=== PATIENT | female | born 1975 | race Caucasian/White ===

== ENCOUNTER 2017-03-24 14:42 | Inpatient (IN) | payer OTHER ==
--- NOTE | 2017-03-24 15:01 | PDOC ---
History of Present Illness - General Chief Complaint: Urinary Problem Stated Complaint: Possible UTI Time Seen by Provider: 03/24/17 14:56 - History of Present Illness Initial Comments: 03/24/17 15:44 Patient is a 42F s/p kidney transplant (2009), currently on immunosuppression, and lupus, on coumadin for history of blood clot in leg when 21 years old, here today complaining of urinary tract symptoms for the past two days. She endorses suprapubic pain and urinary incontinence. She denies subjective fever but temperature was 101.0 in triage. She denies nausea, vomiting, chest pain, shortness of breath and chills. She denies CVA tenderness. She currently does not have a primary care provider because she recently moved. Past History - Past Medical History Allergies/Adverse Reactions: Allergies Allergy/AdvReac Type Severity Reaction Status Date / Time esomeprazole magnesium AdvReac Verified 03/24/17 14:50 [From Nexium] HTN: Yes Hypercholesterolemia: Yes Other medical history: LUPUS , FIBROMYALGIA - Psycho/Social/Smoking Cessation Hx Suicidal Ideation: No Smoking History: Never smoked Information on smoking cessation initiated: No Review of Systems - Review of Systems Able to Perform ROS?: Yes Comments:: 03/24/17 15:51 GENERAL/CONSTITUTIONAL: No fever or chills. HEAD, EYES, EARS, NOSE AND THROAT: No change in vision. No ear pain or discharge. No sore throat. CARDIOVASCULAR: No chest pain or shortness of breath RESPIRATORY: No cough, wheezing, or hemoptysis. GASTROINTESTINAL: Positive for nausea. Negative for vomiting, diarrhea or constipation. GENITOURINARY: Positive for suprapubic pain, increased frequency, and incontinence MUSCULOSKELETAL: No joint or muscle swelling or pain. Positive for chronic back and hip pain, unchanged. SKIN: No rash NEUROLOGIC: Positive for headache. Negative for: loss of consciousness, or change in strength/sensation. ENDOCRINE: No increased thirst. No abnormal weight change HEMATOLOGIC/LYMPHATIC: Positive for history of blood clots in leg when 21 years old ALLERGIC/IMMUNOLOGIC: No hives or skin allergy. *Physical Exam - Vital Signs Last Vital Signs Temp Pulse Resp BP Pulse Ox 101 F H 108 H 18 114/78 99 03/24/17 14:44 03/24/17 14:44 03/24/17 14:44 03/24/17 14:44 03/24/17 14:44 - Physical Exam Comments: 03/24/17 15:54 GENERAL: Awake, alert, and fully oriented, in no acute distress HEAD: No signs of trauma, normocephalic, atraumatic EYES: PERRLA, EOMI, conjunctiva clear ENT: Auricles normal inspection, hearing grossly normal, nares patent, oropharynx clear without exudates. NECK: Normal ROM, supple, no lymphadenopathy, JVD, or masses LUNGS: No distress, speaks full sentences, clear to auscultation bilaterally HEART: Regular rhythm, tachycardic, normal S1 and S2, no murmurs, rubs or gallops, peripheral pulses normal and equal bilaterally. ABDOMEN: Soft, nontender, normoactive bowel sounds. No suprapubic tenderness. No guarding, no rebound. No masses EXTREMITIES: Normal inspection, Normal range of motion, no edema. No clubbing or cyanosis. NEUROLOGICAL: Cranial nerves II through XII grossly intact. Normal speech, normal gait, no focal sensorimotor deficits ED Treatment Course - LABORATORY CBC & Chemistry Diagram: 03/24/17 15:45 03/24/17 15:45 Medical Decision Making - Medical Decision Making 03/24/17 15:56 Patient is a 42F kidney transplant patient on immunosuppression and coumadin here today complaining dysuria and urinary incontinence. Tachycardic and febrile with likely source of infection, meets sepsis criteria. Sepsis workup initiated. Likely secondary to urinary tract infection. 03/24/17 16:17 CXR shows no infiltrate or acute cardiopulmonary process 03/24/17 18:38 UA shows WBCs, RBCs, moderate bacteria and positive leukocyte esterase. Lactate normal. Admitted for sepsis secondary to UTI to Dr Oliva. *DC/Admit/Observation/Transfer Diagnosis at time of Disposition: Sepsis Qualifiers: Sepsis type: sepsis due to unspecified organism Qualified Code(s): A41.9 - Sepsis, unspecified organism UTI (urinary tract infection) Qualifiers: Urinary tract infection type: acute cystitis Hematuria presence: with hematuria Qualified Code(s): N30.01 - Acute cystitis with hematuria - Discharge Dispostion Condition at time of disposition: Stable Admit: Yes - Transfer to Acute Care Facility Accepting Physician:: Pj - Attestations Physician Attestion: 03/24/17 17:53 I, Dr. Sergio Rodriguez, attest that this document has been prepared under my direction and personally reviewed by me in its entirety. I further attest, that it accurately reflects all work, treatment, procedures and medical decision -making performed by me.
[2017-03-24] MEDS ORDERED: SODIUM CHLORIDE 0.9% 1000 ML INFUS.BAG IV PRN (15:29)
--- NOTE | 2017-03-24 15:31 | PDOC ---
Attending Attestation - Resident Resident Name: Sergio Rodriguez - ED Attending Attestation I have performed the following: I have examined & evaluated the patient, The case was reviewed & discussed with the resident, I agree w/resident's findings & plan, Exceptions are as noted - HPI HPI: 03/24/17 15:21 42yo F hx SLE s/p renal tx 2009 p/w suprapubic, dysuria, urinary leakage. Denies F/C, but fever here to 101. Denies N/V, CP, SOB, LE edema, rashes, focal weakness, headache. Compliant with immunesupression. No current doctors as she recently moved to [facility]. Currently on coumadin for "history of clotting" - Physicial Exam PE: 03/24/17 15:24 GENERAL: Awake, alert, and fully oriented, in no acute distress HEAD: No signs of trauma EYES: PERRLA, EOMI, sclera anicteric, conjunctiva clear ENT: Auricles normal inspection, hearing grossly normal, nares patent, oropharynx clear without exudates. Moist mucosa NECK: Normal ROM, supple, no lymphadenopathy, JVD, or masses LUNGS: Breath sounds equal, clear to auscultation bilaterally. No wheezes, and no crackles HEART: tachy but regular to 102 normal S1 and S2, no murmurs, rubs or gallops ABDOMEN: Soft, nontender, normoactive bowel sounds. No guarding, no rebound. No masses. No CVAT EXTREMITIES: Normal range of motion, no edema. No clubbing or cyanosis. No cords, erythema, or tenderness NEUROLOGICAL: Normal speech, cranial nerves intact, negative pronator drift, 5/ 5 strength in all 4 extremities, normal sensation to light touch in all 4 extremities, normal cerebellar exam, normal gait, normal reflexes and tone SKIN: Warm, Dry, normal turgor, no rashes or lesions noted. - Medical Decision Making 03/24/17 15:25 42-year-old female history of renal transplant presents with suprapubic pain, dysuria, and urinary frequency. Exam remarkable for fever to 101 and tachycardia to the low 100s. Concern for UTI versus pyelonephritis. Given patient's immunocompromised status will treat as a early sepsis. -labs -ceftriaxone IV -1L IVF, will give more if patient's tachycardia doesn't resolve and her kidney function is wnl -CXR -UA/Ucx -blood cx -likely admit 03/24/17 16:47 UA concerning for UTI. Will admit patient for further management.
[2017-03-24] MEDS ORDERED: CEFTRIAXONE 1 GM in DEXTROSE 5%-WATER - 50 ML IVPB ONE (15:32)
[2017-03-24] MEDS ORDERED: ACETAMINOPHEN 325 MG TABLET (FP) PO ONE (15:58)
[2017-03-24] MEDS ORDERED: ACETAMINOPHEN 325 MG TABLET (FP) ONE ×2 (16:21→16:22)
[2017-03-24 16:45] LABS: BASOPHIL 0.4 % (0-2.0); EOSINOPHIL 0.4 % (0-4.5); MCH 28.3 pg (25.7-33.7); MCHC 32.5 g/dl (32.0-36.0); MEAN CELL VOLUME 87.2 fl (80-96); MEAN PLT VOLUME 8.4 fl (7.5-11.1); NEUTROPHILS 74.4 % (42.8-82.8); PLATELET COUNT 240 K/MM3 (134-434); RDW 14.1 % (11.6-15.6); WHITE BLOOD COUNT 8.3 K/mm3 (4.0-10.0)
[2017-03-24 16:49] LABS: URINE APPEARANCE CLEAR; URINE BILIRUBIN NEGATIVE (NEGATIVE); URINE BLOOD 3+ (NEGATIVE); URINE COLOR LT. YELLOW; URINE GLUCOSE (UA) NEGATIVE (NEGATIVE); URINE KETONE NEGATIVE (NEGATIVE); URINE NITRITE NEGATIVE (NEGATIVE); URINE UROBILINOGEN 0.2 mg/dL (0.2-1.0)
[2017-03-24 16:52] LABS: URINE LEUK ESTERASE 1+ (NEGATIVE); URINE PROTEIN 2+ (NEGATIVE)
[2017-03-24 17:01] LABS: ACTIVATED PTT 59.2 SECONDS (26.9-34.4)
[2017-03-24 17:10] LABS: ALBUMIN 3.6 g/dl (3.4-5.0); ALK PHOS 123 U/L (45-117); ANION GAP 8 (8-16); BILIRUBIN,TOTAL 0.3 mg/dL (0.2-1.0); CALCIUM 8.8 mg/dL (8.5-10.1); CO2 28 mmol/L (21-32); CPK 268 IU/L (26-192); CREATININE 1.4 mg/dL (0.55-1.02); GLUCOSE,RANDOM 100 mg/dL (74-106); SGOT/AST 37 U/L (15-37); SGPT/ALT 50 U/L (12-78); TOT PROT 7.8 g/dl (6.4-8.2)
[2017-03-24 17:12] LABS: TROPONIN I < 0.02 ng/ml (0.00-0.05)
[2017-03-24 17:15] LABS: URINE BACTERIA MODERATE /hpf (NONE SEEN); URINE RBC 945 /hpf (0-3); URINE WBC 111 /hpf (3-5)
[2017-03-24 17:21] LABS: INR 4.58 (0.82-1.09)
[2017-03-24] MEDS: ATORVASTATIN CA 20 MG TABLET (FP) PO SCH (21:55)
[2017-03-24] MEDS: DEXTROSE 5%-0.45% SALINE 1,000 ML IV SCH (21:55)
[2017-03-24] MEDS: RANITIDINE HCL 150 MG TABLET (FP) PO SCH (21:55)
[2017-03-24] MEDS: ACETAMINOPHEN 325 MG TABLET (FP) PO PRN (22:09)
[2017-03-24] MEDS ORDERED: MYCOPHENOLATE SODIUM 360 MG TABLET.DR PO SCH (22:15)
[2017-03-24] MEDS: MYCOPHENOLATE SODIUM 360 MG TABLET.DR PO SCH (22:18)
[2017-03-24] MEDS: TACROLIMUS ANHYDROUS 1 MG CAPSULE (NF) PO SCH (22:18)
[2017-03-24] MEDS: HYDROXYCHLOROQUINE SO4 200 MG TABLET (FP) PO SCH (23:11)
[2017-03-25 01:54] VITALS: BMI 37.0
[2017-03-25] MEDS: ACETAMINOPHEN 325 MG TABLET (FP) PO PRN ×2 (02:30→18:44)
[2017-03-25] MEDS ORDERED: MYCOPHENOLATE SODIUM 360 MG TABLET.DR PO SCH (07:00)
[2017-03-25] MEDS ORDERED: TACROLIMUS ANHYDROUS 1 MG CAPSULE (NF) PO SCH (07:00)
[2017-03-25 09:10] LABS: BASOPHIL 0.3 % (0-2.0); EOSINOPHIL 0.8 % (0-4.5); MCHC 32.5 g/dl (32.0-36.0); MEAN CELL VOLUME 86.1 fl (80-96); NEUTROPHILS 64.5 % (42.8-82.8); PLATELET COUNT 218 K/MM3 (134-434); RDW 14.1 % (11.6-15.6); WHITE BLOOD COUNT 6.2 K/mm3 (4.0-10.0)
[2017-03-25] MEDS ORDERED: cefTRIAXone SODIUM 1 GM VIAL ONE (09:27)
[2017-03-25] MEDS ORDERED: PT OWN MED DRAWER 7, Y5N ONE (09:27)
[2017-03-25] MEDS ORDERED: DEXTROSE 5%-WATER - 50 ML IVPB ONE (09:28)
[2017-03-25 09:29] LABS: INR 3.57 (0.82-1.09); PROTHROMBIN TIME (PATIENT) 40.3 SEC (9.98-11.88)
[2017-03-25] MEDS: RANITIDINE HCL 150 MG TABLET (FP) PO SCH ×2 (09:30→21:46)
[2017-03-25] MEDS: LACTOBACILLUS ACIDOPHILUS 1 EACH TAB (FP) PO SCH (09:30)
[2017-03-25] MEDS: MYCOPHENOLATE SODIUM 360 MG TABLET.DR PO SCH ×2 (09:30→21:46)
[2017-03-25] MEDS: TACROLIMUS ANHYDROUS 1 MG CAPSULE (NF) PO SCH ×2 (09:31→21:47)
[2017-03-25] MEDS: HYDROXYCHLOROQUINE SO4 200 MG TABLET (FP) PO SCH ×2 (09:31→21:46)
[2017-03-25 09:39] LABS: ALBUMIN 3.4 g/dl (3.4-5.0); ANION GAP 8 (8-16); BILIRUBIN,TOTAL 0.4 mg/dL (0.2-1.0); CO2 28 mmol/L (21-32); CREATININE 1.2 mg/dL (0.55-1.02); GLUCOSE,RANDOM 101 mg/dL (74-106); SGOT/AST 45 U/L (15-37); SGPT/ALT 59 U/L (12-78); TOT PROT 7.7 g/dl (6.4-8.2)
[2017-03-25 09:40] LABS: ALK PHOS 131 U/L (45-117)
[2017-03-25] MEDS ORDERED: CEFTRIAXONE 1 GM in DEXTROSE 5%-WATER - 50 ML IVPB SCH (10:00)
--- NOTE | 2017-03-25 10:25 | EKG ---
Test Reason : Blood Pressure : / mmHG Vent. Rate : 093 BPM Atrial Rate : 093 BPM P-R Int : 160 ms QRS Dur : 086 ms QT Int : 356 ms P-R-T Axes : 024 013 009 degrees QTc Int : 442 ms NORMAL SINUS RHYTHM NONSPECIFIC T WAVE ABNORMALITY ABNORMAL ECG NO PREVIOUS ECGS AVAILABLE Confirmed by JASMIN HUERTA MD ([id number]) on 03/25/2017 10:24:50 AM Referred By: Confirmed By:JASMIN HUERTA MD
--- NOTE | 2017-03-25 12:49 | CON.NEP ---
Consult Consult Specialty:: Nephrology (Carlos/Shantanu) Referred by:: Dr. 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 Pt reports history of UTI's. Pt recently moved to [place] from [place] where she was getting her medical care. No N/V/D, no chest pain , fever, chills, Abd pain. - History Source History Provided By: Patient Limitations to Obtaining History: No Limitations - Past Medical History Renal/: Yes: Renal Failure, Other (renal transplnat ) Heme/Onc: Yes: Other (DVT, Lupus Anticoagulant) Rheumatology: Yes: Lupus - Alcohol/Substance Use Hx Alcohol Use: No - Smoking History Smoking history: Never smoked Home Medications - Allergies Allergies/Adverse Reactions: Allergies Allergy/AdvReac Type Severity Reaction Status Date / Time esomeprazole magnesium AdvReac Verified 03/24/17 14:50 [From Nexium] - Home Medications Home Medications: Ambulatory Orders Atorvastatin Ca [Lipitor] 20 mg PO HS 03/24/17 Famotidine 20 mg PO BID 03/24/17 Hydroxychloroquine Sulfate [Plaquenil] 200 mg PO BID 03/24/17 Lisinopril [Qbrelis] 0.5 mg PO AM 03/24/17 Mycophenolate Sodium [Myfortic] 4 tab PO BID 03/24/17 Tacrolimus [Prograf] 1 mg PO AM 03/24/17 Tacrolimus [Prograf] 2 mg PO HS 03/24/17 Warfarin Sodium [Coumadin] 3 mg PO DAILY 03/24/17 Family Disease History - Family Disease History Family History: Unremarkable Review of Systems - Review of Systems Constitutional: reports: No Symptoms Eyes: reports: No Symptoms HENT: reports: No Symptoms Neck: reports: No Symptoms Cardiovascular: reports: No Symptoms Respiratory: reports: No Symptoms Gastrointestinal: reports: No Symptoms Genitourinary: reports: Burning, Dysuria, Frequency, Urgency Musculoskeletal: reports: No Symptoms Integumentary: reports: No Symptoms Nephrology Consult - Height Height: 5 ft 7 in - Weight Weight: 236 lb 8 oz - BMI Body Mass Index (BMI): 37.0 - Lab Results CBC,BMP: CBC, BMP 03/25/17 08:30 03/25/17 08:30 Anion Gap: Anion Gap Anion Gap 8 (8-16) 03/25/17 08:30 - Imaging Chest X-ray: Image Reviewed - Physical Examination Vital Signs: Vital Signs Temperature 98.8 F 03/25/17 10:00 Pulse Rate 75 03/25/17 10:00 Respiratory Rate 18 03/25/17 10:00 Blood Pressure 100/65 03/25/17 10:00 O2 Sat by Pulse Oximetry (%) 98 03/24/17 22:00 Constitutional: Yes: Well Nourished, No Distress, Calm Eyes: Yes: Conjunctiva Clear HENT: Yes: Atraumatic, Normocephalic Neck: Yes: Supple Cardiovascular: Yes: Regular Rate and Rhythm, S1, S2. No: JVD, Murmur Respiratory: Yes: Regular, CTA Bilaterally Gastrointestinal: Yes: Normal Bowel Sounds, Soft, Abdomen, Obese. No: Tenderness Renal/: No: Anuria, Bladder Distention, CVA Tenderness - Left, CVA Tenderness - Right, Garcia Present Extremities: No: Cold, Cool, Cyanosis Edema: No Integumentary: Yes: WNL Neurological: Yes: Alert, Oriented Problem List - Problems (1) UTI (urinary tract infection) Code(s): N39.0 - URINARY TRACT INFECTION, SITE NOT SPECIFIED Qualifiers: Urinary tract infection type: acute cystitis Hematuria presence: with hematuria Qualified Code(s): N30.01 - Acute cystitis with hematuria (2) Renal transplant recipient Code(s): Z94.0 - KIDNEY TRANSPLANT STATUS (3) CKD (chronic kidney disease) Code(s): N18.9 - CHRONIC KIDNEY DISEASE, UNSPECIFIED (4) Lupus Code(s): L93.0 - DISCOID LUPUS ERYTHEMATOSUS (5) 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 #CKD with Renal Transplant Renal function appears to be at baseline Will attempt to get records from [facility] in [place] Dr. Sánchez Continue Tacrolimus BID, Myfortic BID Trend BUN/Cr as inpatient Check Tacrolimus level this evening #Cystitis/UTI Check Transplant Kidney US to ensure there is no obstruction or evidence of pylonephritis continue Abx as per ID and titrate to oral abx as per ID #DVT/Lupus Anticoagulant continue A/C If pt can be transitioned to oral abx it is ok from over perspective to discharge and we can follow her renal function as a outpatient. Thank you Will follow Doroteo Fournier DO
--- NOTE | 2017-03-25 15:17 | HP ---
Admitting History and Physical - Admission History of Present Illness: Pt is a 42 female w/ PMH significant for SLE, s/p kidney transplant (2009), currently on immunosuppression and DVT. Pt presented to the ER w/ complaints of dysuria and increased urinary frequency. She also complains of suprapubic pain for the past 2 days. In the ER she was found to have a temp of 101. History Source: Patient, Medical Record - Past Medical History Renal/: Yes: Renal Failure, Other (renal transplnat ) Heme/Onc: Yes: Other (DVT, Lupus Anticoagulant) Rheumatology: Yes: Lupus - Past Surgical History Additional Past Surgical History: Kidney transplant - Smoking History Smoking history: Never smoked - Alcohol/Substance Use Hx Alcohol Use: No Home Medications - Allergies Allergies/Adverse Reactions: Allergies Allergy/AdvReac Type Severity Reaction Status Date / Time esomeprazole magnesium AdvReac Verified 03/24/17 14:50 [From Nexium] - Home Medications Home Medications: Ambulatory Orders Atorvastatin Ca [Lipitor] 20 mg PO HS 03/24/17 Famotidine 20 mg PO BID 03/24/17 Hydroxychloroquine Sulfate [Plaquenil] 200 mg PO BID 03/24/17 Lisinopril [Qbrelis] 0.5 mg PO AM 03/24/17 Mycophenolate Sodium [Myfortic] 4 tab PO BID 03/24/17 Tacrolimus [Prograf] 1 mg PO AM 03/24/17 Tacrolimus [Prograf] 2 mg PO HS 03/24/17 Warfarin Sodium [Coumadin] 3 mg PO DAILY 03/24/17 Family Disease History - Family Disease History Family History: Unremarkable Review of Systems - Review of Systems Constitutional: reports: Loss of Appetite, Malaise Eyes: reports: No Symptoms HENT: reports: No Symptoms Neck: reports: No Symptoms Cardiovascular: reports: No Symptoms Respiratory: reports: No Symptoms Gastrointestinal: reports: Abdominal Pain Genitourinary: reports: Dysuria, Frequency Physical Examination Vital Signs: Vital Signs Temperature 98.8 F 03/25/17 10:00 Pulse Rate 75 03/25/17 10:00 Respiratory Rate 18 03/25/17 10:00 Blood Pressure 100/65 03/25/17 10:00 O2 Sat by Pulse Oximetry (%) 98 03/24/17 22:00 Constitutional: Yes: Well Nourished Eyes: Yes: WNL HENT: Yes: WNL, Atraumatic Neck: Yes: WNL, Supple Cardiovascular: Yes: WNL, Regular Rate and Rhythm Respiratory: Yes: WNL, Regular, CTA Bilaterally Gastrointestinal: Yes: WNL, Normal Bowel Sounds, Soft, Abdomen, Obese Musculoskeletal: Yes: WNL Extremities: Yes: WNL Edema: No Neurological: Yes: WNL, Alert, Oriented ...Motor Strength: WNL Labs: CBC, BMP 03/25/17 08:30 03/25/17 08:30 Problem List - Problems (1) UTI (urinary tract infection) Assessment/Plan: Cont IV antibxs ID consult Follow cultures Cont IVF Code(s): N39.0 - URINARY TRACT INFECTION, SITE NOT SPECIFIED Qualifiers: Urinary tract infection type: acute cystitis Hematuria presence: with hematuria Qualified Code(s): N30.01 - Acute cystitis with hematuria (2) DVT (deep venous thrombosis) Assessment/Plan: Coumadin on hold due to supratherapeutic pt/inr Monitor pt/inr and restart coumadin once in therapeutic range Code(s): I82.409 - ACUTE EMBOLISM AND THOMBOS UNSP DEEP VN UNSP LOWER EXTREMITY (3) CKD (chronic kidney disease) Assessment/Plan: Monitor creatinine Cont IVF Code(s): N18.9 - CHRONIC KIDNEY DISEASE, UNSPECIFIED (4) Renal transplant recipient Assessment/Plan: Renal consult Cont immunosuppressive meds Code(s): Z94.0 - KIDNEY TRANSPLANT STATUS (5) Lupus Code(s): L93.0 - DISCOID LUPUS ERYTHEMATOSUS
--- NOTE | 2017-03-25 16:03 | CONSULT ---
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 Pt reports history of UTI's. Pt recently moved to [place] from [place] where she was getting her medical care. No N/V/D, no chest pain , fever, chills, Abd pain. according to the patient she has been getting utis more frequently last year patient was admitted in may in [place] with delfino symptoms and then it seems she was in septic shock according to her currently patient is feeling a little better patient was given ceftriaxone,but still she did spike a fever of 101 after that spike patient has been afebrile - History Source History Provided By: Patient Limitations to Obtaining History: No Limitations - Past Medical History Renal/: Yes: Renal Failure, Other (renal transplnat ) Rheumatology: Yes: Lupus - Alcohol/Substance Use Hx Alcohol Use: No - Smoking History Smoking history: Never smoked Home Medications - Allergies Allergies/Adverse Reactions: Allergies Allergy/AdvReac Type Severity Reaction Status Date / Time esomeprazole magnesium AdvReac Verified 03/24/17 14:50 [From Nexium] - Home Medications Home Medications: Ambulatory Orders Atorvastatin Ca [Lipitor] 20 mg PO HS 03/24/17 Famotidine 20 mg PO BID 03/24/17 Hydroxychloroquine Sulfate [Plaquenil] 200 mg PO BID 03/24/17 Lisinopril [Qbrelis] 0.5 mg PO AM 03/24/17 Mycophenolate Sodium [Myfortic] 4 tab PO BID 03/24/17 Tacrolimus [Prograf] 1 mg PO AM 03/24/17 Tacrolimus [Prograf] 2 mg PO HS 03/24/17 Warfarin Sodium [Coumadin] 3 mg PO DAILY 03/24/17 Review of Systems - Review of Systems Constitutional: reports: Fever Eyes: reports: No Symptoms HENT: reports: No Symptoms Neck: reports: No Symptoms Cardiovascular: reports: No Symptoms Respiratory: reports: No Symptoms Gastrointestinal: reports: No Symptoms Genitourinary: reports: Burning, Dysuria Integumentary: reports: No Symptoms Neurological: reports: No Symptoms Endocrine: reports: No Symptoms Hematology/Lymphatic: reports: No Symptoms Psychiatric: reports: No Symptoms Physical Exam Vital Signs: Vital Signs Temperature 98.2 F 03/25/17 15:51 Pulse Rate 87 03/25/17 15:51 Respiratory Rate 18 03/25/17 15:51 Blood Pressure 105/68 03/25/17 15:51 O2 Sat by Pulse Oximetry (%) 98 03/24/17 22:00 Constitutional: Yes: Well Nourished, No Distress, Calm, Obese Eyes: Yes: Conjunctiva Clear, EOM Intact Cardiovascular: Yes: Regular Rate and Rhythm Respiratory: Yes: Regular, CTA Bilaterally Gastrointestinal: Yes: Normal Bowel Sounds, Soft Renal/: No: CVA Tenderness - Left, CVA Tenderness - Right Musculoskeletal: Yes: WNL Extremities: Yes: WNL Neurological: Yes: Alert, Oriented Psychiatric: Yes: Alert, Oriented Labs: CBC, BMP 03/25/17 08:30 03/25/17 08:30 Imaging - Results Chest X-ray: Report Reviewed, Image Reviewed Assessment/Plan this patient is a immunocmpromised and has been in this condition before and had gone in shock Problem List - Problems (1) UTI (urinary tract infection) Code(s): N39.0 - URINARY TRACT INFECTION, SITE NOT SPECIFIED Qualifiers: Urinary tract infection type: acute cystitis Hematuria presence: with hematuria Qualified Code(s): N30.01 - Acute cystitis with hematuria (2) Renal transplant recipient Code(s): Z94.0 - KIDNEY TRANSPLANT STATUS (3) CKD (chronic kidney disease) Code(s): N18.9 - CHRONIC KIDNEY DISEASE, UNSPECIFIED (4) Lupus Code(s): L93.0 - DISCOID LUPUS ERYTHEMATOSUS (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
[2017-03-25] MEDS: ATORVASTATIN CA 20 MG TABLET (FP) PO SCH (21:46)
[2017-03-25] MEDS: DEXTROSE 5%-0.45% SALINE 1,000 ML IV SCH (21:51)
[2017-03-26] MEDS: ACETAMINOPHEN 325 MG TABLET (FP) PO PRN ×3 (00:36→22:42)
[2017-03-26 08:57] LABS: BASOPHIL 0.5 % (0-2.0); EOSINOPHIL 1.1 % (0-4.5); MCH 28.8 pg (25.7-33.7); MEAN CELL VOLUME 87.3 fl (80-96); MEAN PLT VOLUME 8.5 fl (7.5-11.1); NEUTROPHILS 58.1 % (42.8-82.8); PLATELET COUNT 215 K/MM3 (134-434); WHITE BLOOD COUNT 5.4 K/mm3 (4.0-10.0)
[2017-03-26 09:13] LABS: ALBUMIN 3.1 g/dl (3.4-5.0); ANION GAP 8 (8-16); CALCIUM 8.6 mg/dL (8.5-10.1); CO2 28 mmol/L (21-32); GLUCOSE,RANDOM 92 mg/dL (74-106); MAGNESIUM 1.7 mg/dL (1.8-2.4)
[2017-03-26 09:17] LABS: ALK PHOS 137 U/L (45-117); BILIRUBIN,TOTAL 0.5 mg/dL (0.2-1.0); CREATININE 1.3 mg/dL (0.55-1.02); PHOSPHOROUS 3.2 mg/dL (2.5-4.9); SGOT/AST 49 U/L (15-37); SGPT/ALT 65 U/L (12-78); TOT PROT 7.1 g/dl (6.4-8.2)
[2017-03-26] MEDS ORDERED: PT OWN MED DRAWER 7, Y5N ONE ×3 (09:38→21:23)
[2017-03-26] MEDS: ERTAPENEM SODIUM 1 GM in SODIUM CHLORIDE 50 ML IVPB SCH (09:56)
[2017-03-26] MEDS: LACTOBACILLUS ACIDOPHILUS 1 EACH TAB (FP) PO SCH (09:56)
[2017-03-26] MEDS: RANITIDINE HCL 150 MG TABLET (FP) PO SCH ×2 (09:57→21:34)
[2017-03-26] MEDS: HYDROXYCHLOROQUINE SO4 200 MG TABLET (FP) PO SCH ×2 (09:59→21:37)
[2017-03-26] MEDS: TACROLIMUS ANHYDROUS 1 MG CAPSULE (NF) PO SCH ×2 (10:01→21:36)
[2017-03-26] MEDS: MYCOPHENOLATE SODIUM 360 MG TABLET.DR PO SCH ×2 (10:02→21:37)
[2017-03-26 10:44] LABS: INR 2.72 (0.82-1.09); PROTHROMBIN TIME (PATIENT) 30.5 SEC (9.98-11.88)
--- NOTE | 2017-03-26 11:21 | PN ---
Progress Note (short form) - Note Progress Note: Renal follow up for Renal Transplant Pt seen and examined at the bedside no acute complaints no dysuria, flank pain, N/V/D Vital Signs Temperature 98.6 F 03/26/17 09:28 Pulse Rate 84 03/26/17 09:28 Respiratory Rate 20 03/26/17 09:28 Blood Pressure 116/68 03/26/17 09:28 O2 Sat by Pulse Oximetry (%) 98 03/25/17 09:00 Intake & Output 03/23/17 03/24/17 03/25/17 03/26/17 23:59 23:59 23:59 23:59 Intake Total 500 2770 950 Balance 500 2770 950 Weight 236 lb 8 oz 236 lb 8 oz Gen: NAD, awake and alert CVS: RRR Lungs: CTA Abd: soft, Obese, NT/ND Ext: No edema CBC, BMP 03/26/17 08:00 03/26/17 08:00 Laboratory Tests 03/26/17 08:00 Calcium 8.6 Phosphorus 3.2 Magnesium 1.7 L Albumin 3.1 L Current Medications Acetaminophen (Tylenol -) 650 mg PO Q4H PRN PRN Reason: FEVER OR PAIN Last Admin: 03/26/17 00:36 Dose: 650 mg Atorvastatin Calcium (Lipitor -) 20 mg PO HS [facility] Last Admin: 03/25/17 21:46 Dose: 20 mg Hydroxychloroquine Sulfate (Plaquenil -) 200 mg PO BID [facility] Last Admin: 03/26/17 09:59 Dose: 200 mg Dextrose/Sodium Chloride (D5-1/2ns -) 1,000 mls @ 75 mls/hr IV ASDIR [facility] Last Admin: 03/25/17 21:51 Dose: 75 mls/hr Ertapenem 1 gm/ Sodium (Chloride) 50 mls @ 50 mls/hr IVPB DAILY [facility] PRN Reason: Protocol Last Admin: 03/26/17 09:56 Dose: 50 mls/hr Lactobacillus Acidophilus (Bacid -) 1 tab PO DAILY [facility] Last Admin: 03/26/17 09:56 Dose: 1 tab Mycophenolate Sodium (Mycophenolic Acid) 720 mg PO BID [facility] Last Admin: 03/26/17 10:02 Dose: 720 mg Ranitidine HCl (Zantac -) 150 mg PO BID [facility] Last Admin: 03/26/17 09:57 Dose: 150 mg Tacrolimus (Prograf (Non-Formulary)) 1 mg PO DAILY [facility] Last Admin: 03/26/17 10:01 Dose: 1 mg Tacrolimus (Prograf (Non-Formulary)) 2 mg PO HS [facility] Last Admin: 03/25/17 21:47 Dose: 2 mg 42 year old woman with 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 #CKD with Renal Transplant Renal function stable at this time continue Tacrolimus, Myfortic at present doses can resume low dose Enalapril at home can d/c IVF Tacrolimus levels to be followed as an outpatient #Cystitis/UTI US showed no obstruction or evidence of pylonephritis transition to oral abx as per ID #DVT/Lupus Anticoagulant continue A/C INR is WNL today If pt can be transitioned to oral abx it is ok from over perspective to discharge and we can follow her renal function as a outpatient. 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
[2017-03-26] MEDS ORDERED: MAGNESIUM SULF 50% (8.12 MEQ/2 ML-1 GM VIAL) IVPB ONE (13:00)
--- NOTE | 2017-03-26 15:50 | PN ---
Progress Note, Physician History of Present Illness: Pt states she feels better. Less dysuria. Afebrile today. - Current Medication List Current Medications: Active Medications Acetaminophen (Tylenol -) 650 mg PO Q4H PRN PRN Reason: FEVER OR PAIN Last Admin: 03/26/17 00:36 Dose: 650 mg Atorvastatin Calcium (Lipitor -) 20 mg PO HS [facility] Last Admin: 03/25/17 21:46 Dose: 20 mg Hydroxychloroquine Sulfate (Plaquenil -) 200 mg PO BID [facility] Last Admin: 03/26/17 09:59 Dose: 200 mg Dextrose/Sodium Chloride (D5-1/2ns -) 1,000 mls @ 75 mls/hr IV ASDIR [facility] Last Admin: 03/25/17 21:51 Dose: 75 mls/hr Ertapenem 1 gm/ Sodium (Chloride) 50 mls @ 50 mls/hr IVPB DAILY [facility] PRN Reason: Protocol Last Admin: 03/26/17 09:56 Dose: 50 mls/hr Lactobacillus Acidophilus (Bacid -) 1 tab PO DAILY [facility] Last Admin: 03/26/17 09:56 Dose: 1 tab Mycophenolate Sodium (Mycophenolic Acid) 720 mg PO BID [facility] Last Admin: 03/26/17 10:02 Dose: 720 mg Ranitidine HCl (Zantac -) 150 mg PO BID [facility] Last Admin: 03/26/17 09:57 Dose: 150 mg Tacrolimus (Prograf (Non-Formulary)) 1 mg PO DAILY [facility] Last Admin: 03/26/17 10:01 Dose: 1 mg Tacrolimus (Prograf (Non-Formulary)) 2 mg PO [facility] Last Admin: 03/25/17 21:47 Dose: 2 mg Warfarin Sodium (Coumadin -) 3 mg PO DAILY [facility] - Objective Vital Signs: Vital Signs Temperature 98.6 F 03/26/17 14:23 Pulse Rate 86 03/26/17 14:23 Respiratory Rate 20 03/26/17 14:23 Blood Pressure 104/60 03/26/17 14:23 O2 Sat by Pulse Oximetry (%) 98 03/25/17 09:00 Constitutional: Yes: No Distress HENT: Yes: WNL Cardiovascular: Yes: Regular Rate and Rhythm Respiratory: Yes: CTA Bilaterally Gastrointestinal: Yes: Normal Bowel Sounds, Soft Genitourinary: Yes: WNL Extremities: Yes: WNL Integumentary: Yes: WNL Neurological: Yes: Alert Labs: CBC, BMP 03/26/17 08:00 03/26/17 08:00 INR, PTT INR 2.72 (0.82-1.09) H 03/26/17 08:00 Problem List - Problems (1) CKD (chronic kidney disease) Code(s): N18.9 - CHRONIC KIDNEY DISEASE, UNSPECIFIED (2) 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) Code(s): M32.14 - GLOMERULAR DISEASE IN SYSTEMIC LUPUS ERYTHEMATOSUS (3) Renal transplant recipient Code(s): Z94.0 - KIDNEY TRANSPLANT STATUS (4) Sepsis Code(s): A41.9 - SEPSIS, UNSPECIFIED ORGANISM Qualifiers: Sepsis type: sepsis due to unspecified organism Qualified Code(s): A41.9 - Sepsis, unspecified organism (5) UTI (urinary tract infection) Code(s): N39.0 - URINARY TRACT INFECTION, SITE NOT SPECIFIED Qualifiers: Urinary tract infection type: acute cystitis Hematuria presence: with hematuria Qualified Code(s): N30.01 - Acute cystitis with hematuria Assessment/Plan Pt improving follow up urine culture results continue antibiotics
--- NOTE | 2017-03-26 17:44 | PN ---
Progress Note, Physician History of Present Illness: Pt still feeling some suprapubic discomfort - Current Medication List Current Medications: Active Medications Acetaminophen (Tylenol -) 650 mg PO Q4H PRN PRN Reason: FEVER OR PAIN Last Admin: 03/26/17 00:36 Dose: 650 mg Atorvastatin Calcium (Lipitor -) 20 mg PO HS [facility] Last Admin: 03/25/17 21:46 Dose: 20 mg Hydroxychloroquine Sulfate (Plaquenil -) 200 mg PO BID [facility] Last Admin: 03/26/17 09:59 Dose: 200 mg Dextrose/Sodium Chloride (D5-1/2ns -) 1,000 mls @ 75 mls/hr IV ASDIR [facility] Last Admin: 03/25/17 21:51 Dose: 75 mls/hr Ertapenem 1 gm/ Sodium (Chloride) 50 mls @ 50 mls/hr IVPB DAILY [facility] PRN Reason: Protocol Last Admin: 03/26/17 09:56 Dose: 50 mls/hr Lactobacillus Acidophilus (Bacid -) 1 tab PO DAILY [facility] Last Admin: 03/26/17 09:56 Dose: 1 tab Mycophenolate Sodium (Mycophenolic Acid) 720 mg PO BID [facility] Last Admin: 03/26/17 10:02 Dose: 720 mg Ranitidine HCl (Zantac -) 150 mg PO BID [facility] Last Admin: 03/26/17 09:57 Dose: 150 mg Tacrolimus (Prograf (Non-Formulary)) 1 mg PO DAILY [facility] Last Admin: 03/26/17 10:01 Dose: 1 mg Tacrolimus (Prograf (Non-Formulary)) 2 mg PO [facility] Last Admin: 03/25/17 21:47 Dose: 2 mg Warfarin Sodium (Coumadin -) 3 mg PO DAILY@1800 [facility] - Objective Vital Signs: Vital Signs Temperature 98.6 F 03/26/17 14:23 Pulse Rate 86 03/26/17 14:23 Respiratory Rate 20 03/26/17 14:23 Blood Pressure 104/60 03/26/17 14:23 O2 Sat by Pulse Oximetry (%) 98 03/26/17 11:00 Constitutional: Yes: Well Nourished Neck: Yes: WNL, Supple Cardiovascular: Yes: WNL, Regular Rate and Rhythm Respiratory: Yes: WNL, Regular, CTA Bilaterally Gastrointestinal: Yes: WNL, Normal Bowel Sounds, Soft, Abdomen, Obese Musculoskeletal: Yes: WNL Extremities: Yes: WNL Edema: No Labs: CBC, BMP 03/26/17 08:00 03/26/17 08:00 INR, PTT INR 2.72 (0.82-1.09) H 03/26/17 08:00 Problem List - Problems (1) UTI (urinary tract infection) Assessment/Plan: Cont IV antibxs Urine culture showed lactose fermenting neg bacilli ?Possible change to po antibxs in am with dc planning Code(s): N39.0 - URINARY TRACT INFECTION, SITE NOT SPECIFIED Qualifiers: Urinary tract infection type: acute cystitis Hematuria presence: with hematuria Qualified Code(s): N30.01 - Acute cystitis with hematuria (2) DVT (deep venous thrombosis) Assessment/Plan: Coumadin restarted Check pt/inr in am Code(s): I82.409 - ACUTE EMBOLISM AND THOMBOS UNSP DEEP VN UNSP LOWER EXTREMITY (3) CKD (chronic kidney disease) Assessment/Plan: Monitor creatinine Cont IVF Ok for dc and close f/u as outpt wc pt is aware Code(s): N18.9 - CHRONIC KIDNEY DISEASE, UNSPECIFIED (4) Renal transplant recipient Assessment/Plan: Renal consult noted Cont immunosuppressive meds Code(s): Z94.0 - KIDNEY TRANSPLANT STATUS (5) Lupus Code(s): L93.0 - DISCOID LUPUS ERYTHEMATOSUS
[2017-03-26] MEDS ORDERED: WARFARIN NA 3 MG TABLET PO SCH (18:00)
[2017-03-26] MEDS: ATORVASTATIN CA 20 MG TABLET (FP) PO SCH (21:33)
[2017-03-26] MEDS: DEXTROSE 5%-0.45% SALINE 1,000 ML IV SCH (21:33)
[2017-03-27] MEDS ORDERED: morphine CARPU-JECT 2 MG/1 ML DISP.SYRIN IVPB ONE (00:30)
[2017-03-27 05:29] VITALS: TEMP 97.5
[2017-03-27 09:13] LABS: INR 2.06 (0.82-1.09)
[2017-03-27 09:50] VITALS: BP 98/68; PULSE 68
[2017-03-27] MEDS ORDERED: PT OWN MED DRAWER 7, Y5N ONE ×2 (09:57→14:11)
[2017-03-27] MEDS: RANITIDINE HCL 150 MG TABLET (FP) PO SCH (09:58)
[2017-03-27] MEDS: ERTAPENEM SODIUM 1 GM in SODIUM CHLORIDE 50 ML IVPB SCH (09:58)
[2017-03-27] MEDS: LACTOBACILLUS ACIDOPHILUS 1 EACH TAB (FP) PO SCH (09:58)
[2017-03-27] MEDS: ACETAMINOPHEN 325 MG TABLET (FP) PO PRN (09:58)
[2017-03-27] MEDS: MYCOPHENOLATE SODIUM 360 MG TABLET.DR PO SCH (09:59)
[2017-03-27] MEDS: HYDROXYCHLOROQUINE SO4 200 MG TABLET (FP) PO SCH (10:00)
[2017-03-27] MEDS: TACROLIMUS ANHYDROUS 1 MG CAPSULE (NF) PO SCH (10:00)
[2017-03-27] MEDS ORDERED: ONDANSETRON 4 MG/2 ML VIAL IVPB ONE (12:15)
== END 2017-03-27 14:42 | disposition home or self-care (01) | DRG 463 ==
LOC: JER 14:42 → JERBED 17:53 → J5S 20:26
PROVIDERS: ADMIT Internal Medicine; ATTEND Internal Medicine
DX: N30.01 Acute cystitis with hematuria (principal); Z94.0 Kidney transplant status; M32.9 Systemic lupus erythematosus, unspecified; Z79.01 Long term (current) use of anticoagulants; R32 Unspecified urinary incontinence; Z86.718 Personal history of other venous thrombosis and embolism; N18.9 Chronic kidney disease, unspecified; M79.7 Fibromyalgia; E78.5 Hyperlipidemia, unspecified; E66.9 Obesity, unspecified; Z68.37 Body mass index [BMI] 37.0-37.9, adult
CPT/HCPCS: 36415; 71010-TC; 76776-TC; 80048; 80053; 80197; 81003; 81015; 82553; 82570; 83605; 83735; 84100; 84156; 84484; 84703; 85025; 85610; 85730; 86850; 86900; 86901; 87040; 87086; 87186; 93005; 93010; 99283-25

== ENCOUNTER 2018-10-25 19:58 | Inpatient (IN) | payer OTHER ==
--- NOTE | 2018-10-25 20:39 | PDOC ---
Rapid Medical Evaluation Medical Evaluation: Allergies Allergy/AdvReac Type Severity Reaction Status Date / Time esomeprazole magnesium AdvReac Verified 02/14/18 21:52 [From Nexium] I have performed a brief in-person evaluation of this patient. The patient presents with a chief complaint of: s/p kidney transplant 2009, fibromyalgia, on Coumadin as +lupus anticoagulant; SOB for >1 month, also with occasional R sided rib pain; sleeps with 1 pillow; unsure about CP as she is usually achy all over from fibromyalgia Pertinent physical exam findings: In NAD, lungs clear, no BLE edema I have ordered the following: Labs, EKG, CXR The patient will proceed to the ED for further evaluation. 10/25/18 20:33 Discharge Disposition - Discharge Dispostion Last Admission D/C Date: 03/27/17 - Referrals - Patient Instructions - Post Discharge Activity
[2018-10-25 22:43] LABS: BASO % 1.2 % (0-2.0); EOS % 0.6 % (0-4.5); HEMATOCRIT 30.9 % (32.4-45.2); HEMOGLOBIN 10.3 GM/dL (10.7-15.3); LYMPH % 27.4 % (8-40); MCH 28.4 pg (25.7-33.7); MCHC 33.3 g/dl (32.0-36.0); MEAN CELL VOLUME 85.3 fl (80-96); MEAN PLT VOLUME 7.8 fl (7.5-11.1); MONO % 11.1 % (3.8-10.2); NEUT % 59.7 % (42.8-82.8); PLATELET COUNT 330 K/MM3 (134-434); RBC 3.62 M/mm3 (3.60-5.2); RDW 14.2 % (11.6-15.6); WHITE BLOOD COUNT 7.5 K/mm3 (4.0-10.0)
[2018-10-25 23:20] LABS: ALBUMIN 3.4 g/dl (3.4-5.0); ALK PHOS 223 U/L (45-117); ANION GAP 9 MMOL/L (8-16); BILIRUBIN,TOTAL 0.4 mg/dL (0.2-1); BLOOD UREA NITROGEN 31 mg/dL (7-18); CHLORIDE 98 mmol/L (98-107); CO2 28 mmol/L (21-32); CREATININE 2.1 mg/dL (0.55-1.3); GLUCOSE,RANDOM 85 mg/dL (74-106); N-TERMINAL BNP 84.2 pg/ml (5-125); SGOT/AST 54 U/L (15-37); SGPT/ALT 64 U/L (13-61); SODIUM 135 mmol/L (136-145); TOT PROT 8.1 g/dl (6.4-8.2)
[2018-10-26] MEDS ORDERED: SODIUM CHLORIDE 0.9% 1000 ML INFUS.BAG IV ONE ×2 (00:25→01:49)
--- NOTE | 2018-10-26 00:38 | PDOC ---
History of Present Illness - General History Source: Patient Exam Limitations: No Limitations - History of Present Illness Initial Comments: 10/26/18 01:53 Patient is a 43 year old female with a significant past medical history of SLE, s/p kidney transplant (2009), currently on immunosuppression and DVT, who presents to the ED with complaints of right upper quadrant tenderness that began x1 month ago. Patient reports going to the ED one month ago and had a chest xray and ct done for the RUQ pain with the results being negative, except for small left sided pneumonia. She reports being discharged, prescribed medication and told to follow up with her pcp in 2 weeks. Patient reports seeing her pcp after two weeks who continued her on her medication and said to wait 2 more weeks before getting follow up chest xray to see if the pneumonia cleared. She reports seeing her hand i thermal cutter this morning who advised she come into the ED for further evaluation. Denies chest pain, sob. Denies nausea, vomiting. Bautista fever, chills. Denies contact with sick individuals, out of state travelling. Denies any other symptoms. Allergies: esomeprazole magnesium Social history: No smoking. No alcohol. No illicit drugs. Surgical history: Kidney transplant. Bilateral hip replacement. PMD: Not on staff. <Low Pressley - Last Filed: 10/26/18 01:53> <Charleen Altamirano - Last Filed: 10/26/18 02:01> - General Chief Complaint: Shortness of Breath Stated Complaint: PAIN Time Seen by Provider: 10/25/18 20:33 Past History <Low Pressley - Last Filed: 10/26/18 01:53> - Past Medical History COPD: No Disorders: Yes (frequesnt UTI, Kidney Transplant 2009) HTN: Yes Hypercholesterolemia: Yes Liver Disease: Yes (Nodules) Other medical history: LUPUS anticoagulant - Surgical History Orthopedic Surgery: Yes (bilateral hip relplacement) - Immunization History Immunization Up to Date: Yes - Suicide/Smoking/Psychosocial Hx Smoking History: Never smoked Have you smoked in the past 12 months: No Information on smoking cessation initiated: No Hx Alcohol Use: No Drug/Substance Use Hx: No Hx Substance Use Treatment: No <Charleen Altamirano - Last Filed: 10/26/18 02:01> - Past Medical History Allergies/Adverse Reactions: Allergies Allergy/AdvReac Type Severity Reaction Status Date / Time esomeprazole magnesium AdvReac Verified 10/25/18 20:40 [From Nexium] Home Medications: Ambulatory Orders Atorvastatin Ca [Lipitor] 20 mg PO HS 03/24/17 Famotidine 20 mg PO BID 03/24/17 Hydroxychloroquine Sulfate [Plaquenil] 200 mg PO BID 03/24/17 Lisinopril [Qbrelis] 0.5 mg PO AM 03/24/17 Mycophenolate Sodium [Myfortic] 4 tab PO BID 03/24/17 Tacrolimus [Prograf] 2 mg PO HS 03/24/17 Warfarin Sodium [Coumadin] 3 mg PO DAILY 03/24/17 Amoxicillin/Potassium Clav [Augmentin 875-125 Tablet] 1 each PO BID #20 tablet 03/27/17 Hydroxychloroquine So4 [Plaquenil -] 200 mg PO BID tablet 03/27/17 Review of Systems - Review of Systems Able to Perform ROS?: Yes Comments:: 10/26/18 01:53 GENERAL/CONSTITUTIONAL: No fever or chills. No weakness. HEAD, EYES, EARS, NOSE AND THROAT: No change in vision. No ear pain or discharge. No sore throat. GASTROINTESTINAL: +RUQ pain. No nausea, vomiting, diarrhea or constipation. GENITOURINARY: No dysuria, frequency, or change in urination. CARDIOVASCULAR: No chest pain or shortness of breath. RESPIRATORY: +Coughing. No wheezing, or hemoptysis. MUSCULOSKELETAL: No joint or muscle swelling or pain. No neck or back pain. SKIN: No rash NEUROLOGIC: No headache, vertigo, loss of consciousness, or change in strength/ sensation. ENDOCRINE: No increased thirst. No abnormal weight change. HEMATOLOGIC/LYMPHATIC: No anemia, easy bleeding, or history of blood clots. ALLERGIC/IMMUNOLOGIC: No hives or skin allergy. <Low Pressley - Last Filed: 10/26/18 01:53> *Physical Exam - Vital Signs Last Vital Signs Temp Pulse Resp BP Pulse Ox 98.1 F 112 H 16 101/74 100 10/25/18 20:36 10/25/18 20:36 10/25/18 20:36 10/25/18 20:36 10/25/18 20:36 - Physical Exam Comments: 10/26/18 01:54 Constitutional: Awake, alert, oriented. No acute distress. Head: Normocephalic. Atraumatic Eyes: PERRL. EOMI. Conjunctivae are not pale. ENT: Mucous membranes are moist and intact. Posterior pharynx without exudate or erythema. Uvula midline. Neck: Supple. Full ROM. No lymphadenopathy. Cardiovascular: Regular rate. Regular rhythm. S1, S2 regular. Distal pulses are 2+ and symmetric. Pulmonary/Chest: No evidence of respiratory distress. Clear to auscultation bilaterally No wheezing, rales or rhonchi. Abdominal: +mild right upper quadrant tenderness. +obese Soft and nondistended. No rebound, guarding or rigidity. No organomegaly. No palpable masses. Good bowel sounds. Back: No CVA tenderness. Musculoskeletal: No edema. No cyanosis. No clubbing. Full range of motion in all extremities. No Calf tenderness. Radial/pedal pulses are intact and 2+ bilaterally Skin: Skin is warm and dry. No petechiae. No purpura. Neurological: +speaking full sentences. Alert and oriented to person, place, and time. Cranial nerves II-XII are grossly intact. Normal speech. Strength is grossly symmetric. No sensory deficits. Psychiatric: Good eye contact. Normal interaction, affect and behavior. <Low Pressley - Last Filed: 10/26/18 01:53> - Vital Signs Last Vital Signs Temp Pulse Resp BP Pulse Ox 98.1 F 112 H 16 101/74 100 10/25/18 20:36 10/25/18 20:36 10/25/18 20:36 10/25/18 20:36 10/25/18 20:36 <Charleen Altamirano - Last Filed: 10/26/18 02:01> Moderate Sedation - Procedure Monitoring Vital Signs: Procedure Monitoring Vital Signs Temperature 98.1 F 10/25/18 20:36 Pulse Rate 112 H 10/25/18 20:36 Respiratory Rate 16 10/25/18 20:36 Blood Pressure 101/74 10/25/18 20:36 O2 Sat by Pulse Oximetry (%) 100 10/25/18 20:36 <Low Pressley - Last Filed: 10/26/18 01:53> - Procedure Monitoring Vital Signs: Procedure Monitoring Vital Signs Temperature 98.1 F 10/25/18 20:36 Pulse Rate 112 H 10/25/18 20:36 Respiratory Rate 16 10/25/18 20:36 Blood Pressure 101/74 10/25/18 20:36 O2 Sat by Pulse Oximetry (%) 100 10/25/18 20:36 <Charleen Altamirano - Last Filed: 10/26/18 02:01> Heart Score/ECG Review - ECG Intrepretation Comment:: 10/26/18 00:41 sinus at 92, nl axis, nl interval, no acute st/t wave findings <Charleen Altamirano - Last Filed: 10/26/18 02:01> ED Treatment Course - LABORATORY CBC & Chemistry Diagram: 10/25/18 22:31 10/25/18 22:31 - ADDITIONAL ORDERS Additional order review: Laboratory Results 10/26/18 10/25/18 10/25/18 00:19 22:31 22:31 PT with INR 48.70 H INR 4.07 H* PTT (Actin FS) 42.0 H Sodium 135 L Potassium 4.0 Chloride 98 Carbon Dioxide 28 Anion Gap 9 BUN 31 H Creatinine 2.1 H Creat Clearance w eGFR 25.83 Random Glucose 85 Calcium 9.0 Total Bilirubin 0.4 AST 54 H ALT 64 H Alkaline Phosphatase 223 H Troponin I < 0.02 B-Natriuretic Peptide 84.2 Total Protein 8.1 Albumin 3.4 Serum , Qual Negative 10/25/18 22:31 RBC 3.62 MCV 85.3 MCHC 33.3 RDW 14.2 MPV 7.8 Neutrophils % 59.7 D Lymphocytes % 27.4 D Monocytes % 11.1 H Eosinophils % 0.6 D Basophils % 1.2 D <Low Pressley - Last Filed: 10/26/18 01:53> - LABORATORY CBC & Chemistry Diagram: 10/25/18 22:31 10/25/18 22:31 - ADDITIONAL ORDERS Additional order review: Laboratory Results 10/25/18 22:31 Sodium 135 L Potassium 4.0 Chloride 98 Carbon Dioxide 28 Anion Gap 9 BUN 31 H Creatinine 2.1 H Creat Clearance w eGFR 25.83 Random Glucose 85 Calcium 9.0 Total Bilirubin 0.4 AST 54 H ALT 64 H Alkaline Phosphatase 223 H Troponin I < 0.02 B-Natriuretic Peptide 84.2 Total Protein 8.1 Albumin 3.4 10/25/18 22:31 RBC 3.62 MCV 85.3 MCHC 33.3 RDW 14.2 MPV 7.8 Neutrophils % 59.7 D Lymphocytes % 27.4 D Monocytes % 11.1 H Eosinophils % 0.6 D Basophils % 1.2 D - RADIOLOGY Radiology Studies Ordered: Category Date Time Status CHEST CT WITHOUT CONTRAST [CT] Stat CT Scan 10/26/18 00:26 Ordered <Charleen Altamirano - Last Filed: 10/26/18 02:01> Medical Decision Making - Medical Decision Making 10/26/18 00:38 a/p: 43yo female with recent pna dx and hx of renal transplant on coumadin for lupus with sob x 1m -chills at home -was on abx, but still with dry cough and sob -no cp -RUQ pain-had ultrasound that showed liver nodules -baseline cr 1.3-1.4 -docs at [facility] -will send labs, ct chest for persistent pna -will give ivf hydration, check inr -will monitor and reassess 10/26/18 00:41 pt with mild kem ct chest pending 10/26/18 01:21 INR 4.07 10/26/18 01:50 pt with hx of renal transplant with kem also with liver masses and elevated inr discussed ct findings in detail with the patient will place in obs for kem in renal transplant kidney 10/26/18 02:01 case discussed with SERGIO who accepts pt to service <Charleen Altamirano - Last Filed: 10/26/18 02:01> *DC/Admit/Observation/Transfer - Attestations Scribe Attestion: 10/26/18 01:57 Documentation prepared by Low Pressley, acting as medical representative for Charleen Altamirano DO. <Low Pressley - Last Filed: 10/26/18 01:53> - Discharge Dispostion Decision to Admit order: Yes - Attestations Physician Attestion: 10/26/18 01:52 I, Dr. Charleen Altamirano DO, attest that this document has been prepared under my direction and personally reviewed by me in its entirety. I further attest, that it accurately reflects all work, treatment, procedures and medical decision -making performed by me. <Charleen Altamirano - Last Filed: 10/26/18 02:01> Diagnosis at time of Disposition: Renal transplant recipient, KEM (acute kidney injury) - Discharge Dispostion Condition at time of disposition: Fair
[2018-10-26 01:04] LABS: PROTHROMBIN TIME (PATIENT) 48.7 SEC (9.7-13.0)
[2018-10-26 01:15] LABS: INR 4.07 (0.83-1.09)
--- NOTE | 2018-10-26 02:04 | HP ---
<Angel Mancini - Last Filed: 10/26/18 07:56> CHIEF COMPLAINT: RUQ pain , sob on exertion PCP:DR Shelia harvey [facility] [employer] Operator Dr Segura Safety And Health Manager : DR Stallworth HISTORY OF PRESENT ILLNESS: Patient is a 43 year old female with a significant past medical history of SLE, s/p kidney transplant (2009), currently on immunosuppression and DVT, who presents to the ED with complaints of right upper quadrant tenderness that began x1 month ago. Patient reports going to the ED one month ago and had a chest xray and ct done for the RUQ pain with the results being negative, except for small left sided pneumonia. She reports being discharged, prescribed medication and told to follow up with her pcp in 2 weeks. Patient reports seeing her pcp after two weeks who continued her on her medication and said to wait 2 more weeks before getting follow up chest xray to see if the pneumonia cleared. She reports seeing her ply bander this morning who advised she come into the ED for further evaluation. RUQ tenderness , reproducible worsening with breathing or laying down on that side , continuous wake her up at night. has sever GERD as well , reports one week history of SOB on exertion can climp one flight before develop SOB. Denies chest pain, sob. Denies nausea, vomiting. Bautista fever, chills. Denies contact with sick individuals, out of state travelling. Denies any other symptoms. ER course was notable for: (1)CT chest with liver nodule (2)INR 4 (3)BUN/Cr 31/2.1 Recent Travel:denies PAST MEDICAL HISTORY: Kidney transplant 2009 , Lupus anticoagulation , SLE , GERD, fibromyalgia PAST SURGICAL HISTORY: B/L hip replacement , Kidney transplant , cord compression Social History: Smoking:denies (her step father was smoking in house ) Alcohol:denies Drugs: denies Family History:sister lupus , sister scleroderma, mother HTN , Heart Disease Allergies esomeprazole magnesium [From Nexium] Adverse Reaction (Verified 10/25/18 20:40) HOME MEDICATIONS: Home Medications Medication Instructions Recorded Atorvastatin Ca [Lipitor] 20 mg PO HS 03/24/17 Famotidine 20 mg PO BID 03/24/17 Hydroxychloroquine Sulfate 200 mg PO BID 03/24/17 [Plaquenil] Lisinopril [Qbrelis] 0.5 mg PO AM 03/24/17 Mycophenolate Sodium [Myfortic] 4 tab PO BID 03/24/17 Tacrolimus [Prograf] 2 mg PO HS 03/24/17 Warfarin Sodium [Coumadin] 3 mg PO DAILY 03/24/17 Amoxicillin/Potassium Clav 1 each PO BID #20 tablet 03/27/17 [Augmentin 875-125 Tablet] Hydroxychloroquine So4 [Plaquenil 200 mg PO BID tablet 03/27/17 -] REVIEW OF SYSTEMS Acid reflux CONSTITUTIONAL: Absent: fever, chills, diaphoresis, generalized weakness, malaise, loss of appetite, weight change HEENT: Absent: rhinorrhea, nasal congestion, throat pain, throat swelling, difficulty swallowing, mouth swelling, ear pain, eye pain, visual changes CARDIOVASCULAR: Absent: chest pain, syncope, palpitations, irregular heart rate, lightheadedness , peripheral edema RESPIRATORY: Absent: cough, shortness of breath, dyspnea with exertion, wheezing, stridor, hemoptysis GASTROINTESTINAL: Absent: abdominal pain, abdominal distension, nausea, vomiting, diarrhea, constipation, melena, hematochezia GENITOURINARY: Absent: dysuria, frequency, urgency, hesitancy, hematuria, flank pain, genital pain MUSCULOSKELETAL: Absent: myalgia, arthralgia, joint swelling, back pain, neck pain SKIN: Absent: rash, itching, pallor HEMATOLOGIC/IMMUNOLOGIC: Absent: easy bleeding, easy bruising, lymphadenopathy, frequent infections ENDOCRINE: Absent: unexplained weight gain, unexplained weight loss, heat intolerance, cold intolerance NEUROLOGIC: Absent: headache, focal weakness or paresthesias, dizziness, unsteady gait, seizure, mental status changes, bladder or bowel incontinence PSYCHIATRIC: Absent: anxiety, depression, suicidal or homicidal ideation, hallucinations. PHYSICAL EXAMINATION Vital Signs - 24 hr 10/25/18 20:36 Temperature 98.1 F Pulse Rate 112 H Respiratory 16 Rate Blood Pressure 101/74 O2 Sat by Pulse 100 Oximetry (%) GENERAL: AAOx3 in NAD HEAD: NC/AT EYES: EOMI, Conjunctiva clear, sclera anicteric ENT: moist mucous membrane NECK: Supple, no JVD LUNGS: CTA B/L, no crackles no wheezing no accessory muscle use. HEART: RRR, NSR, normal s1, s2, murmur no M/R/G ABDOMEN: obese Soft, RUQ sever tenderness , NT, +BS 4 Q, no CVA Tenderness LOWER EXTREMITIES: no edema, +2DP pulse, NEUROLOGICAL: No focal deficit. Normal speech. gait not observed. PSYCHIATRIC: Cooperative. Good eye contact. Appropriate mood and affect. SKIN: Warm, dry, Laboratory Results - last 24 hr 10/25/18 10/25/18 10/25/18 22:31 22:31 22:31 WBC 7.5 RBC 3.62 Hgb 10.3 L Hct 30.9 L MCV 85.3 MCH 28.4 MCHC 33.3 RDW 14.2 Plt Count 330 D MPV 7.8 Absolute Neuts (auto) 4.5 Neutrophils % 59.7 D Lymphocytes % 27.4 D Monocytes % 11.1 H Eosinophils % 0.6 D Basophils % 1.2 D Nucleated RBC % 0 PT with INR INR PTT (Actin FS) Sodium 135 L Potassium 4.0 Chloride 98 Carbon Dioxide 28 Anion Gap 9 BUN 31 H Creatinine 2.1 H Creat Clearance w eGFR 25.83 Random Glucose 85 Calcium 9.0 Total Bilirubin 0.4 AST 54 H ALT 64 H Alkaline Phosphatase 223 H Troponin I < 0.02 B-Natriuretic Peptide 84.2 Total Protein 8.1 Albumin 3.4 Serum , Qual Negative 10/26/18 00:19 WBC RBC Hgb Hct MCV MCH MCHC RDW Plt Count MPV Absolute Neuts (auto) Neutrophils % Lymphocytes % Monocytes % Eosinophils % Basophils % Nucleated RBC % PT with INR 48.70 H INR 4.07 H* PTT (Actin FS) 42.0 H Sodium Potassium Chloride Carbon Dioxide Anion Gap BUN Creatinine Creat Clearance w eGFR Random Glucose Calcium Total Bilirubin AST ALT Alkaline Phosphatase Troponin I B-Natriuretic Peptide Total Protein Albumin Serum , Qual CBC, BMP 10/25/18 22:31 10/25/18 22:31 ASSESSMENT/PLAN: 43 year old female with a significant past medical history of SLE, s/p kidney transplant (2009), currently on immunosuppression and DVT, who presents to the ED with complaints of right upper quadrant tenderness was found to have liver nodule admitted to obs M/S for further evaluation # RUQ pain liver nodule , vs biliary colic vs rib pain vs another unknown etiology * Pain control * Bilirubin direct and total * monitor off abx * IV fluids NS @ 75 CC/hr * Ct abdomen/ pelvic vs MRI * GI consult DR Diaz * mild transaminitis trend # Supratheraputic INR * INR 4 * Hold coumadin for now * repeat lab * no active bleeding # Anemia of chronic disease * iron studies * ferretin * no active bleeding * not on any iron supplement , # KEM * Cr base line 1.3 * improved with Hydration # SLE # Lupus anticoagulation * not in exacerbation or flare up * resume home meds # Fibromyalgia * cont home meds # Kidney Transplant * nephrology consulted Dr Fournier * Cont immuno suppressant meds # GERD * on famotidine #FEN * NS@ 100 Cc/hr * Monitor lytes * regular diet # Proph * scds , On coumadin supratherpautic for now # Dispo * Obs, M/S Visit type - Emergency Visit Emergency Visit: Yes ED Registration Date: 10/26/18 Care time: The patient presented to the Emergency Department on the above date and was hospitalized for further evaluation of their emergent condition. - New Patient This patient is new to me today: Yes Date on this admission: 10/26/18 - Critical Care Critical Care patient: No <Felix Houston - Last Filed: 11/27/18 01:31> Seen and examined; agree with resident note aside from what is supplemented in my own documentation.
--- NOTE | 2018-10-26 02:07 | PN ---
Teaching Attending Note Name of Resident: Angel Mancini ATTENDING PHYSICIAN STATEMENT I saw and evaluated the patient. I reviewed the resident's note and discussed the case with the resident. I agree with the resident's findings and plan as documented. SUBJECTIVE: Seen and examined; please refer to resident note for further historical discussion. Briefly, patient is a 43 y/o female presenting with 1 month of worsening abdominal pain associated with some nausea and diminished PO intake; she is found to have elevated alk phos and KEM in her transplanted kidney. Nothing makes the pain better or worse; has been seen at [facility] recently and had a US which showed liver lesions-she has yet to go for followup imaging. She is compliant with her immunosuppresant regimine. She was recently tx'd as OP for CAP. She will be admitted to medicine with GI and nephrology consults. 10 sys ROS done and negative aside from HPI PMH, PSH, Family hx, Social hx reviewed Medication list reviewed; pending reconciliation Home Medications Medication Instructions Recorded Atorvastatin Ca [Lipitor] 20 mg PO HS 03/24/17 Famotidine 20 mg PO BID 03/24/17 Hydroxychloroquine Sulfate 200 mg PO BID 03/24/17 [Plaquenil] Lisinopril [Qbrelis] 0.5 mg PO AM 03/24/17 Mycophenolate Sodium [Myfortic] 4 tab PO BID 03/24/17 Tacrolimus [Prograf] 2 mg PO HS 03/24/17 Warfarin Sodium [Coumadin] 3 mg PO DAILY 03/24/17 Hydroxychloroquine So4 [Plaquenil 200 mg PO BID tablet 03/27/17 -] OBJECTIVE: VS, labs, imaging reviewed NAD, AAO, resting in bed NC AT EOMI PERRLA RRR s1/2 no mgr Lungs CTAB, w/ sym exp Tender, ND +BS CN2-12 wnl, no fnd Normal mood, appropriate behavior ASSESSMENT AND PLAN: Patient presents for 1 month of abdominal pain and is found to have elevated alk phos, KEM in transplanted kidney; found to have 'liver nodules' at outside facility which were confirmed on CT scan here. 1) Abdominal pain with elevated alk phos and multiple solid liver nodules -Alk phos higher than it has been in the past in the setting of multiple solid nodules and 1 month RUQ pain; will likely need MRCP with contrast but this will have to be coordinated between GI and nephrology given the history of transplant. Consulting both services. Obtain old imaging studies from [email or web address]. -Trend CMP; PRN analgesia -Monitor abdominal exam 2) KEM in transplanted kidney -Improved; likely prerenal given better with hydration. Estimates her baseline is ~1.4. Check urine lytes to obtain FeNa; consult nephrology and check tacro level. Monitor QD BMP and UOP. 3) Supratherapeutic INR -Holding coumadin and consulting pharmacy to dose 4) Hx Lupus -Continue home medications; not typical of flare for her. If needed consult rheumatology. 5) Hx DVT -Pharmacy to dose coumadin 6) Obesity -[employer]ug [employer] [place] regarding FENA -NS@75cc -QD BMP -Renal diet -As tolerated Full Code
[2018-10-26] MEDS ORDERED: ACETAMINOPHEN 325 MG TABLET (FP) PO PRN (03:58)
[2018-10-26] MEDS ORDERED: SODIUM CHLORIDE 1,000 ML IV SCH ×2 (04:00→06:29)
[2018-10-26 04:30] LABS: ALBUMIN 2.8 g/dl (3.4-5.0); ALK PHOS 189 U/L (45-117); ANION GAP 8 MMOL/L (8-16); BILIRUBIN,TOTAL 0.3 mg/dL (0.2-1); BLOOD UREA NITROGEN 28 mg/dL (7-18); CALCIUM 8.5 mg/dL (8.5-10.1); CHLORIDE 103 mmol/L (98-107); CO2 25 mmol/L (21-32); CREATININE 1.7 mg/dL (0.55-1.3); GLUCOSE,RANDOM 86 mg/dL (74-106); N-TERMINAL BNP 62.1 pg/ml (5-125); POTASSIUM 3.9 mmol/L (3.5-5.1); SGOT/AST 45 U/L (15-37); SGPT/ALT 56 U/L (13-61); SODIUM 136 mmol/L (136-145)
[2018-10-26 05:11] LABS: EPI CELLS 1.7 /HPF (FEW); HYALINE CASTS 11 /hpf (NEGATIVE); URINE APPEARANCE CLEAR; URINE BACTERIA 0.162 /hpf (NEGATIVE); URINE BILIRUBIN NEGATIVE (<2.0 mg/dL); URINE COLOR YELLOW; URINE GLUCOSE (UA) NEGATIVE (NEGATIVE); URINE KETONE NEGATIVE (NEGATIVE); URINE LEUK ESTERASE NEGATIVE (NEGATIVE); URINE NITRITE NEGATIVE (NEGATIVE); URINE PROTEIN 2+ (NEGATIVE); URINE RBC 2 /hpf (0-3); URINE UROBILINOGEN 0.2 mg/dL (0.2-1.0); URINE WBC 2 /hpf (3-5)
[2018-10-26] MEDS ORDERED: LISINOPRIL PO SCH (07:00)
[2018-10-26 07:51] VITALS: BMI 34.9
[2018-10-26 09:57] LABS: PROTHROMBIN TIME (PATIENT) 49.3 SEC (9.7-13.0)
[2018-10-26 10:00] LABS: ACTIVATED PTT 43.4 SECONDS (25.2-36.5)
[2018-10-26] MEDS ORDERED: MYCOPHENOLATE SODIUM PO SCH (10:00)
[2018-10-26] MEDS ORDERED: RANITIDINE HCL 150 MG TABLET (FP) PO SCH (10:00)
[2018-10-26] MEDS ORDERED: HYDROXYCHLOROQUINE SO4 200 MG TABLET (FP) PO SCH ×2 (10:00→22:00)
[2018-10-26 10:17] LABS: AMYLASE 48 U/L (25-115); BILIRUBIN,DIRECT 0.2 mg/dL (0.0-0.2); BILIRUBIN,TOTAL 0.3 mg/dL (0.2-1); GAMMA GLUTAMYL TRANSPEPTIDASE 214 U/L (5-85); LIPASE 182 U/L (73-393); MAGNESIUM 1.7 mg/dL (1.8-2.4); PHOSPHOROUS 3.1 mg/dL (2.5-4.9)
[2018-10-26] MEDS ORDERED: MAGNESIUM SULF 50% (8.12 MEQ/2 ML-1 GM VIAL) IVPB ONE (10:47)
--- NOTE | 2018-10-26 10:56 | EKG ---
Test Reason : Blood Pressure : / mmHG Vent. Rate : 092 BPM Atrial Rate : 092 BPM P-R Int : 154 ms QRS Dur : 072 ms QT Int : 362 ms P-R-T Axes : 028 030 034 degrees QTc Int : 447 ms POOR DATA QUALITY, INTERPRETATION MAY BE ADVERSELY AFFECTED NORMAL SINUS RHYTHM NORMAL ECG WHEN COMPARED WITH ECG OF 14-FEB-2018 23:32, NONSPECIFIC T WAVE ABNORMALITY HAS REPLACED INVERTED T WAVES IN INFERIOR LEADS NONSPECIFIC T WAVE ABNORMALITY NO LONGER EVIDENT IN ANTERIOR LEADS Confirmed by KEYANA PATEL MD ([id number]) on 10/26/2018 10:55:41 AM Referred By: Confirmed By:KEYANA PATEL MD
[2018-10-26] MEDS ORDERED: LISINOPRIL 5 MG TABLET (FP) PO SCH (11:15)
[2018-10-26 11:37] LABS: INR 4.12 (0.83-1.09)
--- NOTE | 2018-10-26 11:38 | CONSULT ---
Consult - text type - Consultation Consultation Note: Renal Consult for KEM and Renal Transplant This is a 43 year old woman with hx of ESRD s/p Renal Transplant in 2010 ( baseline Cr 1.3-1.4), follows with [facility], DVT who presented with Abd pain. Pt reports that she has been having RUQ pain for about 1 month. She was told that she had liver nodules when she was seen in urgent care and advised to follow up with PMD. Pt states that the pain is pulling and has been consistent for about 1 month. Pt was also treated for PNA 1 month ago with oral doxycycline. Pt has been complaint with all transplant medications. Denies any NSAID use. Appetite has been not so good the last few days. + Nausea and 1 episode of diarrhea. Has a slight NOLASCO, no CP, Palpitations. Recently also had MORFIN. No skin rashes. PMhx: as above Allergies: NKDA Family Hx: NC Social Hx: No T/A/D ROS: as per HPI Home Medications Medication Instructions Recorded Atorvastatin Ca [Lipitor] 10 mg PO HS 03/24/17 Hydroxychloroquine Sulfate 200 mg PO BID 03/24/17 [Plaquenil] Mycophenolate Sodium [Myfortic] 4 tab PO BID 03/24/17 Tacrolimus [Prograf] 1 mg PO AM 03/24/17 Warfarin Sodium [Coumadin] 3 mg PO DAILY 03/24/17 Gabapentin 300 mg PO BID 10/26/18 Lisinopril [Zestril] 2.5 mg PO DAILY 10/26/18 Ondansetron HCl [Zofran] 4 mg PO Q6H PRN 10/26/18 Tacrolimus 2 mg PO HS 10/26/18 Vital Signs Temperature 98.3 F 10/26/18 07:40 Pulse Rate 93 H 10/26/18 07:40 Respiratory Rate 18 10/26/18 07:40 Blood Pressure 111/77 10/26/18 07:40 O2 Sat by Pulse Oximetry (%) 100 10/26/18 05:25 Intake & Output 10/23/18 10/24/18 10/25/18 10/26/18 23:59 23:59 23:59 23:59 Weight 103.419 kg 101.333 kg NAD awake and alert neck supple, no JVD RRR, no M/R CTA, no rales or wheeze soft, + tenderness no graft tenderness no LE edema, cyanosis or clubbing CBC, BMP 10/25/18 22:31 10/26/18 03:44 Laboratory Tests 03/26/17 02/14/18 10/25/18 08:00 22:37 22:31 Creatinine 1.3 H 1.7 H 2.1 H 10/26/18 03:44 Creatinine 1.7 H Laboratory Tests 10/26/18 10/26/18 10/26/18 03:44 04:50 08:42 Calcium 8.5 Phosphorus 3.1 Magnesium 1.7 L Iron TIBC Iron Saturation Albumin 2.8 L Urine Protein 2+ Urine Glucose (UA) Negative Urine Blood Negative 10/26/18 08:42 Calcium Phosphorus Magnesium Iron Pending TIBC Pending Iron Saturation Pending Albumin Urine Protein Urine Glucose (UA) Urine Blood Current Medications Acetaminophen (Tylenol -) 650 mg PO Q4H PRN PRN Reason: PAIN Atorvastatin Calcium (Lipitor -) 20 mg PO HS [facility] Hydroxychloroquine Sulfate (Plaquenil -) 200 mg PO BID [facility] Sodium Chloride (Normal Saline -) 1,000 mls @ 75 mls/hr IV ASDIR [facility] Last Admin: 10/26/18 07:30 Dose: 75 mls/hr Lisinopril (Prinivil) 2.5 mg PO DAILY [facility] Non-Formulary Medication (Mycophenolate Sodium [Myfortic]) 4 tab PO BID [facility] Tacrolimus (Prograf) 2 mg PO HS [facility] 43 year old woman with hx of ESRD s/p Renal Transplant in 2009 (baseline Cr 1.3- 1.4), follows with , SLE, DVT who presented with Abd pain. Pt reports that she has been having RUQ pain for about 1 month with KEM #KEM on CKD likely due to volume depletion vs AIN unlikely ATN, obstruction or rejection #Renal Transplant on Tacrolimus and Myfortic #RUQ pain #Liver Nodules #SLE #DVT Would continue aggressive IVF hydration pending ECHO results. Continue Tacrolimus 1mg in AM, 2mg in PM, Myfortic 720mg BID. F/u tacrolimus levels. Continue ACEi for now as renal function already improving. Avoid NSIADs. Dose all meds for CrCl < 30 for now. GI consult for Abd pain and elevated LFTs. If additional imaging is needed can consider MRI as opposed to CT with contrast to minimize risk of kidney injury. f/u ECHO and official read of Chest CT Continue Plaquenil Thank you Doroteo Fournier DO
[2018-10-26] MEDS ORDERED: PATIENT'S OWN MEDICATION (NON-FORMULARY) (Mycophenolate Sodium [Myfortic] 720 MG) PO SCH (12:18)
--- NOTE | 2018-10-26 12:44 | PN ---
Physical Exam: SUBJECTIVE: Patient seen and examined at bedside. Continues to c/o of right abd pain and SOB on exertion. Status unchanged since admission. . OBJECTIVE: Vital Signs Period Temp Pulse Resp BP Sys/Seymour Pulse Ox Last 24 Hr 98.1 F-98.4 F 82-112 16-20 100-111/55-77 100-100 GENERAL: A&Ox3, NAD HEENT: NC/AT, PERRLA, EOMI, MMM NECK: Trachea midline, full range of motion, supple. LUNGS: CTA b/l HEART: RRR no m/r/g ABDOMEN: +bs, soft, diffuse tenderness greatest in RUQ EXTREMITIES: 2+ pulses, warm, well-perfused, no edema. 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 SKIN: Warm, dry, normal turgor, no rashes or lesions noted Laboratory Results - last 24 hr 10/25/18 10/25/18 10/25/18 22:31 22:31 22:31 WBC 7.5 RBC 3.62 Hgb 10.3 L Hct 30.9 L MCV 85.3 MCH 28.4 MCHC 33.3 RDW 14.2 Plt Count 330 D MPV 7.8 Absolute Neuts (auto) 4.5 Neutrophils % 59.7 D Lymphocytes % 27.4 D Monocytes % 11.1 H Eosinophils % 0.6 D Basophils % 1.2 D Nucleated RBC % 0 PT with INR INR PTT (Actin FS) Sodium 135 L Potassium 4.0 Chloride 98 Carbon Dioxide 28 Anion Gap 9 BUN 31 H Creatinine 2.1 H Creat Clearance w eGFR 25.83 Random Glucose 85 Calcium 9.0 Phosphorus Magnesium Ferritin Total Bilirubin 0.4 Direct Bilirubin GGT AST 54 H ALT 64 H Alkaline Phosphatase 223 H Troponin I < 0.02 B-Natriuretic Peptide 84.2 Total Protein 8.1 Albumin 3.4 Total Amylase Lipase Serum , Qual Negative Urine Color Urine Appearance Urine pH Ur Specific [place] Urine Protein Urine Glucose (UA) Urine Ketones Urine Blood Urine Nitrite Urine Bilirubin Urine Urobilinogen Ur Leukocyte Esterase Urine WBC (Auto) Urine RBC (Auto) Urine Casts (Auto) U Epithel Cells (Auto) Urine Bacteria (Auto) 10/26/18 10/26/18 10/26/18 00:19 03:44 04:50 WBC RBC Hgb Hct MCV MCH MCHC RDW Plt Count MPV Absolute Neuts (auto) Neutrophils % Lymphocytes % Monocytes % Eosinophils % Basophils % Nucleated RBC % PT with INR 48.70 H INR 4.07 H* PTT (Actin FS) 42.0 H Sodium 136 Potassium 3.9 Chloride 103 Carbon Dioxide 25 Anion Gap 8 BUN 28 H Creatinine 1.7 H Creat Clearance w eGFR 32.96 Random Glucose 86 Calcium 8.5 Phosphorus Magnesium Ferritin Total Bilirubin 0.3 Direct Bilirubin GGT AST 45 H ALT 56 Alkaline Phosphatase 189 H Troponin I < 0.02 B-Natriuretic Peptide 62.1 Total Protein 7.0 Albumin 2.8 L Total Amylase Lipase Serum , Qual Urine Color Yellow Urine Appearance Clear Urine pH 5.0 Ur Specific [place] 1.019 Urine Protein 2+ Urine Glucose (UA) Negative Urine Ketones Negative Urine Blood Negative Urine Nitrite Negative Urine Bilirubin Negative Urine Urobilinogen 0.2 Ur Leukocyte Esterase Negative Urine WBC (Auto) 2 Urine RBC (Auto) 2 Urine Casts (Auto) 11 U Epithel Cells (Auto) 1.7 Urine Bacteria (Auto) 0.162 10/26/18 10/26/18 08:42 08:42 WBC RBC Hgb Hct MCV MCH MCHC RDW Plt Count MPV Absolute Neuts (auto) Neutrophils % Lymphocytes % Monocytes % Eosinophils % Basophils % Nucleated RBC % PT with INR 49.30 H INR 4.12 H* PTT (Actin FS) 43.4 H Sodium Potassium Chloride Carbon Dioxide Anion Gap BUN Creatinine Creat Clearance w eGFR Random Glucose Calcium Phosphorus 3.1 Magnesium 1.7 L Ferritin 485.8 H Total Bilirubin 0.3 Direct Bilirubin 0.2 GGT 214 H AST ALT Alkaline Phosphatase Troponin I < 0.02 B-Natriuretic Peptide Total Protein Albumin Total Amylase 48 Lipase 182 Serum , Qual Urine Color Urine Appearance Urine pH Ur Specific [place] Urine Protein Urine Glucose (UA) Urine Ketones Urine Blood Urine Nitrite Urine Bilirubin Urine Urobilinogen Ur Leukocyte Esterase Urine WBC (Auto) Urine RBC (Auto) Urine Casts (Auto) U Epithel Cells (Auto) Urine Bacteria (Auto) Active Medications Generic Name Dose Route Start Last Admin Trade Name Freq PRN Reason Stop Dose Admin Acetaminophen 650 mg 10/26/18 03:58 Tylenol - PO Q4H PRN PAIN Atorvastatin Calcium 20 mg 10/26/18 22:00 Lipitor - PO HS [facility] Hydroxychloroquine Sulfate 200 mg 10/26/18 22:00 Plaquenil - PO BID [facility] Sodium Chloride 1,000 mls @ 75 mls/hr 10/26/18 06:29 10/26/18 07:30 Normal Saline - IV 75 mls/hr ASDIR [facility] Administration Lisinopril 2.5 mg 10/26/18 11:15 10/26/18 11:39 Prinivil PO Not Given DAILY [facility] Non-Formulary Medication 720 mg 10/26/18 12:18 Mycophenolate Sodium [Myfortic] PO BID [facility] Tacrolimus 2 mg 10/26/18 22:00 Prograf PO HS [facility] Tacrolimus 1 mg 10/27/18 10:00 Prograf PO DAILY [facility] ASSESSMENT/PLAN: 43 y/o F w/ PMHx SLE, lupus nephritis s/p renal transplant in 2009 on immunosuppression, on coumadin reportedly for +LA, remote DVT, p/w 1 month of RUQ pain and worsening SOB, liver nodules found on imaging #RUQ pain -etiology unclear -liver nodules seen on dry CT chest -per nephrology, contrast MRI preferred to contrast CT for further imaging -GI consulted, recs appreciated -NPO per GI #lupus nephritis s/p renal transplant -nephrology consulted -recommends continuation of home immunosuppressives -cont ACEi w/ improving renal function, avoid NSAIDS -echo pending -MRI preferred to CT for any contrast imaging -continue IVF #KEM -admission Cr 2.1-->1.7, baseline is 1.3-1.4 -per nephrology, dose meds to CrCl < 30 -cont IVF #FEN -NS 75 -monitor and correct electrolytes -NPO presently, adv as per GI #PPx -DVT: INR 4.12, holding warfarin -GI: not indicated #code -full #dispo -cont to monitor on med/surg Visit type - Emergency Visit Emergency Visit: Yes ED Registration Date: 10/26/18 Care time: The patient presented to the Emergency Department on the above date and was hospitalized for further evaluation of their emergent condition. - New Patient This patient is new to me today: Yes Date on this admission: 10/26/18 - Critical Care Critical Care patient: No
--- NOTE | 2018-10-26 14:40 | CON.GI ---
Consult Consult Specialty:: GI Referred by:: Hospitalist Service Reason for Consultation:: Abnormal liver chemistries and abnormal liver imaging - History of Present Illness Chief Complaint: Dyspnea on exertion, dyspeptic symptoms, right sided pain x 1 month History of Present Illness: 43F admitted for evaluation of progressive MORFIN, cough, dyspeptic symptoms, right sided pain. progressively worse over the last month. She is s/p liver donor renal transplant 2009 secondary to renal involvement of her lupus. CT scan of the chest revealed multiple liver lesions suspicious for metastatic disease. She denies nightsweats, unintentional weight loss. She is followed by Dr. Pate, [facility]. she believes that she had an upper endoscopy and colonoscopy 2 years ago while living in [place]. She describes that colon was normal while EGD revealed irritation from reflux. She denies rectal bleeding or change in bowel habits. She points to her RUQ when describing where the pain has been occurring. She was told of nodules in the liver buy urgent care as well. She was recently treated with doxycycline for PNA 1 month ago. She denies known history of malignancy or family history of malignancy. She denies IVDA. Describes appetite being "off" the last few days. Her liver chemistries have been abnormal from 02/22. It is unclear if this has been evaluated as an outpatient. Supratherapeutic INR noted on admission - History Source History Provided By: Patient, Medical Record Limitations to Obtaining History: No Limitations - Past Medical History Renal/: Yes: Renal Failure, Other (renal transplnat ) ...LMP Comment: years ago ...: No Heme/Onc: Yes: Other (DVT) Rheumatology: Yes: Fibromyalgia, Lupus (With sequelae of renal failure, lupus anticoagulant), Other - Past Surgical History Past Surgical History: Yes: Kidney Transplant Additional Surgical History: 2009 - Alcohol/Substance Use Hx Alcohol Use: No History of Substance Use: reports: None - Smoking History Smoking history: Never smoked Have you smoked in the past 12 months: No - Social History ADL: Independent Occupation: Un[employer] Place of : Other ([place]) Came to [place] (year[place] age 2 History of Recent Travel: No Home Medications - Allergies Allergies/Adverse Reactions: Allergies Allergy/AdvReac Type Severity Reaction Status Date / Time esomeprazole magnesium AdvReac Verified 10/25/18 20:40 [From Nexium] - Home Medications Home Medications: Ambulatory Orders Atorvastatin Ca [Lipitor] 10 mg PO HS 03/24/17 Hydroxychloroquine Sulfate [Plaquenil] 200 mg PO BID 03/24/17 Mycophenolate Sodium [Myfortic] 4 tab PO BID 03/24/17 Tacrolimus [Prograf] 1 mg PO AM 03/24/17 Warfarin Sodium [Coumadin] 3 mg PO DAILY 03/24/17 Gabapentin 300 mg PO BID 10/26/18 Lisinopril [Zestril] 2.5 mg PO DAILY 10/26/18 Ondansetron HCl [Zofran] 4 mg PO Q6H PRN 10/26/18 Tacrolimus 2 mg PO HS 10/26/18 Family Disease History - Family Disease History Family Disease History: Other: Father (Alive: healthy), Mother (Alive: healthy) , Brother (1, healthy), Sister (2: 1 with Scleroderma, 1 with SLE w/ cardiac involvement), Daughter (1, healthy) Other Family History: No family history of colorectal cancer or other GI malignancy Review of Systems - Review of Systems Constitutional: reports: Loss of Appetite. denies: Unintentional Wgt. Loss Respiratory: reports: Cough, SOB on Exertion Gastrointestinal: reports: Other (Dyspepsia) Physical Exam-GI Vital Signs: Vital Signs Temperature 98.3 F 10/26/18 07:40 Pulse Rate 93 H 10/26/18 07:40 Respiratory Rate 18 10/26/18 07:40 Blood Pressure 111/77 10/26/18 07:40 O2 Sat by Pulse Oximetry (%) 100 10/26/18 11:58 Constitutional: Yes: Calm Eyes: No: Sclera Icterus Cardiovascular: Yes: Regular Rate and Rhythm Respiratory: Yes: CTA Bilaterally Gastrointestinal Inspection: Yes: Scars (Renal transplant scar RLQ). No: Distention ...Auscultate: Yes: Normoactive Bowel Sounds ...Palpate: Yes: Tenderness (TTP along right lower rib border and mild RUQ TTP. Negative pruitt's.) ...Percussion: No: Tympanitic Edema: No (No LE edema) Neurological: Yes: Alert Labs: CBC, BMP 10/25/18 22:31 10/26/18 03:44 INR, PTT INR 4.12 (0.83-1.09) H* 10/26/18 08:42 Problem List - Problems (1) Liver lesion Assessment/Plan: Multiple lesions noted on non contrast CT scan of the chest. Limited in terms of information obtained given that it was a non contrast study. Liver chemistries abnormal dating back from at least 02/22 so question if this is more of a chronic finding (no prior imaging studies to compare). Looks clinically well but has a broad diagnosis given her immunosupression including malignancy, atypical infection, granulomatous disease. Ordered abdominal US to help evaluate lesions further. Likely would benefit from contrast imaging study when renal function permits: ie triple phase MRI of the abdomen with and without contrast Hepatitis A/B/C screening serologies (ordered) AFP/CEA/CA 19-9 ordered Consider pulm eval given non-productive cough and progressive MORFIN Consider heme/onc evaluation Discussed with Dr. Fournier. Agreed that evaluation by the [facility] transplant service would be reasonable. My office called the [facility] team office for evaluation, possibly by Dr. Lee Code(s): K76.9 - LIVER DISEASE, UNSPECIFIED
--- NOTE | 2018-10-26 15:04 | PN ---
Teaching Attending Note Name of Resident: Rafat Murphy ATTENDING PHYSICIAN STATEMENT I saw and evaluated the patient. I reviewed the resident's note and discussed the case with the resident. I agree with the resident's findings and plan as documented. SUBJECTIVE:c/o dyspnea on mild exertion which has been progressing over the past month. also been having abdominal pain which is why u/s was done as outpatient and was told she had liver nodules. unable to specify how long shes been having abdominal pain as she always contributed it to reflux symptoms and had EGD/colonoscopy 2 years ago to evaluate which she reports only saw some gastritis. never had cardiac workup in the past. had pulmonary function testing when first diagnosed with SLE when she was 19. renal transplant was due to SLE nephritis. claims medication compliance but has moved around [facility] every few years ([place]). OBJECTIVE: Last Vital Signs Temp Pulse Resp BP Pulse Ox 98.3 F 93 H 18 111/77 100 10/26/18 07:40 10/26/18 07:40 10/26/18 07:40 10/26/18 07:40 10/26/18 11:58 General NAD CV S1 S2 RRR no murmur/rub/gallop Lungs CTA B/L no wheezing/rales/rhonchi Abdomen diffusely tender worse in RUQ, unable to palpate livers edge due to body habitus ASSESSMENT AND PLAN: 43yo F wtih PMH SLE, SLE nephritis s/p Renal transplant, DVT on coumadin presented to the ER wtih abdominal pain with recently diagnosed liver nodules 1. Abdominal pain-likely related to liver lesions. also seen here on CT without contrast. could be granulomatous disease however can not r/o malignancy vs infection with immunosupression. would need MRI with contrast and possible biopsy. GI on board 2. KEM- due to dehydration. on IVF. slowly improving. cont IVF to prevent contrast induced nephropathy. states her baseline is 1.4. will need to monitor closely as renal transplant. nephro on board 3. Supratherapeutic INR- no signs of bleeding. hold coumadin. check INR daily 4. Dyspnea- lungs clear on exam. CT chest is not showing anything. pt does not appear in respiratory distress and saturating 100% on RA. echo pending. if does not improve will consider pulm eval. 5. Hypomagnesemia- Mg IV 6. SLE- plaquenil and mycophenolate 7. SLE nephritis s/p transplant- tacrolimus level pending. cont tacrolimus 8. DVT ppx- supratherapeutic INR
--- NOTE | 2018-10-26 15:28 | ECHO ---
Name: BRISSA MELARA Exam:Adult Echocardiogram Study Date: 10/26/2018 01:04 PM Age: 43 yrs Reason For Study: ASSESS LVEF VALVULAR FUNCTION Height: 67 in Weight: 223 lb BSA: 2.1 m2 MMode/2D Measurements & Calculations IVSd: 0.78 cm Ao root diam: 2.9 cm LVIDd: 4.4 cm LA dimension: 3.1 cm LVIDs: 3.1 cm LVPWd: 0.72 cm EDV(Teich): 87.8 ml LVOT diam: 2.1 cm ESV(Teich): 37.2 ml TAPSE: 2.8 cm Doppler Measurements & Calculations MV E max addy: 77.5 cm/sec Ao V2 max: 118.7 cm/sec MV A max addy: 65.6 cm/sec Ao max P.6 mmHg MV E/A: 1.2 Ao V2 mean: 79.0 cm/sec MV dec time: 0.17 sec Ao mean P.8 mmHg Ao V2 VTI: 24.2 cm MALLIKA(I,D): 3.0 cm2 MALLIKA(V,D): 2.8 cm2 LV V1 max P.8 mmHg SV(LVOT): 73.2 ml LV V1 mean P.5 mmHg LV V1 max: 97.2 cm/sec LV V1 mean: 77.1 cm/sec LV V1 VTI: 21.5 cm Med Peak E' Addy: 8.9 cm/sec Med E/e': 8.7 Lat Peak E' Addy: 15.7 cm/sec Lat E/e': 4.9 Procedure A complete two-dimensional transthoracic echocardiogram was performed (2D, M-mode, Doppler and color flow Doppler). Left Ventricle The left ventricular size, thickness and function are normal. The left ventricular ejection fraction is normal. Ejection Fraction = 60-65%. The left ventricular wall motion is normal. Right Ventricle The right ventricle is normal in size and function. Atria Normal left and right atrial size and function. Mitral Valve There is no mitral regurgitation noted. Tricuspid Valve There is trace tricuspid regurgitation. There was insufficient TR detected to calculate RV systolic p ressure. Aortic Valve The aortic valve is trileaflet. No hemodynamically significant valvular aortic stenosis. No aortic regurgitation is present. Pulmonic Valve There is no pulmonic valvular regurgitation. Great Vessels The aortic root is normal size. Pericardium/Pleura There is no pericardial effusion. Interpretation Summary The left ventricular size, thickness and function are normal The right ventricle is normal in size and function. There is trace tricuspid regurgitation. MD Darin Fountain 10/26/2018 03:27 PM
[2018-10-26 17:14] VITALS: TEMP 98.2
--- NOTE | 2018-10-26 17:27 | PN ---
Progress Note (short form) - Note Progress Note: Spoke with Dr. Lee. Has accepted Ms. Hubbard for transfer to [facility]. Spoke with Dr. Begum regarding this. Problem List - Problems (1) Liver lesion Code(s): K76.9 - LIVER DISEASE, UNSPECIFIED
[2018-10-26 21:02] VITALS: BP 132/90; PULSE 95
[2018-10-26] MEDS ORDERED: TACROLIMUS ANHYDROUS 1 MG CAPSULE PO SCH ×2 (22:00)
[2018-10-26] MEDS ORDERED: ATORVASTATIN CA 20 MG TABLET (FP) PO SCH (22:00)
[2018-10-27 04:14] LABS: SERUM IRON SATURATION 9 % (15-55); TOTAL IRON BINDING CAPACITY 195 ug/dL (250-450); UIBC 177 ug/dL (131-425)
[2018-10-27] MEDS ORDERED: TACROLIMUS ANHYDROUS 1 MG CAPSULE PO SCH (10:00)
--- NOTE | 2018-10-27 14:02 | DS ---
Physical Exam: SUBJECTIVE: Patient seen and examined at bedside. Continues to c/o of right abd pain and SOB on exertion. Status unchanged since admission. OBJECTIVE: Vital Signs Period Temp Pulse Resp BP Sys/Seymour Pulse Ox Last 24 Hr 98.2 F-98.2 F 88-95 18-18 109-132/61-90 PHYSICAL EXAM GENERAL: A&Ox3, NAD HEENT: NC/AT, PERRLA, EOMI, MMM NECK: Trachea midline, full range of motion, supple. LUNGS: CTA b/l HEART: RRR no m/r/g ABDOMEN: +bs, soft, diffuse tenderness greatest in RUQ EXTREMITIES: 2+ pulses, warm, well-perfused, no edema. NEUROLOGICAL: brim blocker, motor, sensory systems w/o focal deficit PSYCH: Normal mood, normal affect. SKIN: Warm, dry, normal turgor, no rashes or lesions noted LABS Laboratory Results - last 24 hr 10/26/18 08:42 Iron 18 L TIBC 195 L Iron Saturation 9 L HOSPITAL COURSE: Date of Admission:10/26/18 Patient is a 43 y/o F w/ PMHx SLE, lupus nephritis s/p renal transplant in 2009 on immunosuppression, on coumadin reportedly for +LA, remote DVT, p/w 1 month of RUQ pain and worsening SOB. In [facility] on presentation. 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 GI and nephrology consulted, agreed patient would require contrast imaging preferably MRI. Given renal status , patient was transferred to [facility] under care of Dr. Lee. Date of Discharge: 10/26/18 Minutes to complete discharge: 40 Discharge Summary Reason For Visit: ACUTE KIDNEY INJURY Condition: Fair - Instructions Diet, Activity, Other Instructions: Renal transplant patient hospitalized for abdominal discomfort, found to have suspicious liver masses. In [facility] on presentation. Transferred to tertiary center for HLOC. Disposition: TRANSFER ACUTE CARE/OTHER HOSP - Home Medications Comprehensive Discharge Medication List: Ambulatory Orders Atorvastatin Ca [Lipitor] 10 mg PO HS 03/24/17 Hydroxychloroquine Sulfate [Plaquenil] 200 mg PO BID 03/24/17 Mycophenolate Sodium [Myfortic] 4 tab PO BID 03/24/17 Tacrolimus [Prograf] 1 mg PO AM 03/24/17 Warfarin Sodium [Coumadin] 3 mg PO DAILY 03/24/17 Gabapentin 300 mg PO BID 10/26/18 Lisinopril [Zestril] 2.5 mg PO DAILY 10/26/18 Ondansetron HCl [Zofran] 4 mg PO Q6H PRN 10/26/18 Tacrolimus 2 mg PO HS 10/26/18 This patient is new to me today: Yes Date on this admission: 10/26/18 Emergency Visit: No Critical Care patient: No - Discharge Referral Referred to [facility] Med [facility] No
== END 2018-10-26 21:38 | disposition short-term general hospital (02) ==
LOC: JER 19:58 → JERBED 10-26 01:53 → J7W 10-26 06:54 → OBSVTOIN 10-26 14:12
PROVIDERS: ADMIT Internal Medicine; ATTEND Internal Medicine
DX: K76.9 Liver disease, unspecified (principal); N17.9 Acute kidney failure, unspecified; M32.8 Other forms of systemic lupus erythematosus; Z94.0 Kidney transplant status; I10 Essential (primary) hypertension; E78.00 Pure hypercholesterolemia, unspecified; K21.9 Gastro-esophageal reflux disease without esophagitis; M79.7 Fibromyalgia; R10.10 Upper abdominal pain, unspecified; M32.14 Glomerular disease in systemic lupus erythematosus; D63.8 Anemia in other chronic diseases classified elsewhere; E66.9 Obesity, unspecified; Z68.35 Body mass index [BMI] 35.0-35.9, adult; E86.0 Dehydration; R06.00 Dyspnea, unspecified; E83.42 Hypomagnesemia; Z96.643 Presence of artificial hip joint, bilateral; Z86.718 Personal history of other venous thrombosis and embolism; Z79.01 Long term (current) use of anticoagulants
CPT/HCPCS: 36415; 71250-TC; 80053; 80197; 81003; 82150; 82247; 82248; 82728; 82977; 83540; 83550; 83690; 83735; 83880; 84100; 84484; 84703; 85025; 85610; 85730; 87086; 93005; 93010; 93306-TC; 99283-25; G0378; J7030

== ENCOUNTER 2022-08-11 22:57 | Observation (INO) | payer OTHER ==
[2022-08-12 01:14] LABS: VENOUS BASE EXCESS 0.4 mmol/L (-2-2); VENOUS PCO2 55.5 mmHg (38-52); VENOUS PH 7.318 (7.310-7.410)
[2022-08-12 01:15] LABS: BASO % 0.3 % (0-2.0); EOS % 1.2 % (0-4.5); HEMOGLOBIN 11.6 GM/dL (10.7-15.3); LYMPH % 13.2 % (8-40); MCH 28.6 pg (25.7-33.7); MCHC 32.3 g/dl (32.0-36.0); MEAN CELL VOLUME 88.7 fl (80-96); MEAN PLT VOLUME 7.7 fl (7.5-11.1); NEUT % 77.3 % (42.8-82.8); PLATELET COUNT 284 10^3/uL (134-434); RBC 4.06 M/mm3 (3.60-5.2); RDW 14.5 % (11.6-15.6); WHITE BLOOD COUNT 13.2 K/mm3 (4.0-10.0)
[2022-08-12 01:22] LABS: CHLORIDE 100 mmol/L (98-107); SODIUM 137 mmol/L (136-145)
[2022-08-12 01:36] LABS: ALBUMIN 3.5 g/dl (3.4-5.0); ALK PHOS 95 U/L (45-117); ANION GAP 12 MMOL/L (8-16); BILIRUBIN,TOTAL 0.5 mg/dL (0.2-1); CALCIUM 9.2 mg/dL (8.5-10.1); CO2 26 mmol/L (21-32); CREATININE 2.5 mg/dL (0.55-1.3); GLUCOSE,RANDOM 95 mg/dL (74-106); SGOT/AST 14 U/L (15-37); SGPT/ALT 20 U/L (13-61); TOT PROT 7.6 g/dl (6.4-8.2)
[2022-08-12 01:55] LABS: INR 2.59 (0.83-1.09); PROTHROMBIN TIME (PATIENT) 30.1 SEC (9.7-13.0)
[2022-08-12 01:58] LABS: ACTIVATED PTT 35.8 SECONDS (25.2-36.5)
[2022-08-12] MEDS ORDERED: SODIUM CHLORIDE 1,000 ML IV STA (03:52)
[2022-08-12] MEDS ORDERED: CEFTRIAXONE 1 GM/50 ML BAG ONE ×2 (04:15→10:45)
[2022-08-12] MEDS ORDERED: AZITHROMYCIN IVPB 500 MG/250 ML BAG IVPB ONE (04:15)
[2022-08-12 05:47] LABS: URINE APPEARANCE CLEAR; URINE BILIRUBIN NEGATIVE (NEGATIVE); URINE COLOR YELLOW; URINE GLUCOSE (UA) NEGATIVE (NEGATIVE); URINE KETONE NEGATIVE (NEGATIVE); URINE LEUK ESTERASE NEGATIVE (NEGATIVE); URINE NITRITE NEGATIVE (NEGATIVE); URINE PROTEIN NEGATIVE (NEGATIVE); URINE UROBILINOGEN 0.2 mg/dL (0.2-1.0)
[2022-08-12] MEDS ORDERED: HEPARIN NA (PORCINE) 5,000 UNITS/ML 1ML VIAL SQ SCH (06:00)
[2022-08-12] MEDS ORDERED: ACETAMINOPHEN 1000 MG/100 ML BAG IVPB PRN (06:19)
[2022-08-12] MEDS ORDERED: ACETAMINOPHEN INJECTION 100 ML IVPB ONE ×2 (06:28→10:45)
[2022-08-12] MEDS ORDERED: CEFTRIAXONE 1 GM in DEXTROSE 5%-WATER - 50 ML IVPB SCH (10:00)
[2022-08-12] MEDS ORDERED: ACETAMINOPHEN 1000 MG/100 ML BAG IVPB ONE (11:05)
[2022-08-12] MEDS ORDERED: BISMUTH SUBSALICYLATE 262 MG/15 ML BTL PO PRN (14:48)
[2022-08-12] MEDS ORDERED: WARFARIN NA 1 MG TABLET ONE ×2 (15:10→15:57)
[2022-08-12] MEDS ORDERED: LISINOPRIL 5 MG TABLET ONE (15:10)
[2022-08-12] MEDS: predniSONE 5 MG TABLET (UD) PO SCH (15:32)
[2022-08-12] MEDS: LISINOPRIL 5 MG TABLET PO SCH (15:32)
[2022-08-12] MEDS ORDERED: WARFARIN NA 1 MG TABLET PO SCH (18:00)
[2022-08-12] MEDS ORDERED: WARFARIN NA 3 MG TABLET PO SCH (18:00)
[2022-08-12] MEDS ORDERED: ACETAMINOPHEN 325 MG TABLET (FP) ONE (22:07)
[2022-08-12] MEDS ORDERED: ATORVASTATIN CA 10 MG TABLET (FP) ONE (22:07)
[2022-08-12] MEDS ORDERED: GABAPENTIN 300 MG CAPSULE ONE (22:08)
[2022-08-12] MEDS: HYDROXYCHLOROQUINE SO4 200 MG TABLET (FP) PO SCH (22:27)
[2022-08-12] MEDS: ATORVASTATIN CA 10 MG TABLET (FP) PO SCH (22:27)
[2022-08-12] MEDS: GABAPENTIN 300 MG CAPSULE PO SCH (22:27)
[2022-08-12] MEDS: VANCOMYCIN 250 MG/5 ML ORAL SOLUTION PO SCH (22:27)
[2022-08-12] MEDS: TACROLIMUS ANHYDROUS 1 MG CAPSULE PO SCH (22:28)
[2022-08-13] MEDS: ACETAMINOPHEN 325 MG TABLET (FP) PO PRN ×2 (03:01→11:58)
[2022-08-13] MEDS: VANCOMYCIN 250 MG/5 ML ORAL SOLUTION PO SCH ×4 (03:42→18:23)
[2022-08-13 04:29] VITALS: BMI 37.8
[2022-08-13] MEDS ORDERED: LACTATED RINGERS SOLUTION 1,000 ML/1,000 ML INFUS.BAG IV SCH ×2 (08:15→15:45)
[2022-08-13] MEDS ORDERED: ONDANSETRON 4 MG/2 ML VIAL IVPUSH PRN (09:14)
[2022-08-13] MEDS: GABAPENTIN 300 MG CAPSULE PO SCH ×2 (09:54→22:59)
[2022-08-13] MEDS: LISINOPRIL 5 MG TABLET PO SCH ×2 (09:54→10:02)
[2022-08-13] MEDS: HYDROXYCHLOROQUINE SO4 200 MG TABLET (FP) PO SCH ×2 (09:54→22:59)
[2022-08-13] MEDS: predniSONE 5 MG TABLET (UD) PO SCH (09:55)
[2022-08-13] MEDS: TACROLIMUS ANHYDROUS 1 MG CAPSULE PO SCH ×2 (09:55→23:02)
[2022-08-13 11:32] LABS: BASO % 0.1 % (0-2.0); EOS % 0.5 % (0-4.5); HEMATOCRIT 32.2 % (32.4-45.2); HEMOGLOBIN 10.4 GM/dL (10.7-15.3); LYMPH % 5.2 % (8-40); MCH 28.9 pg (25.7-33.7); MCHC 32.4 g/dl (32.0-36.0); MEAN CELL VOLUME 89.3 fl (80-96); MEAN PLT VOLUME 7.6 fl (7.5-11.1); MONO % 7.7 % (3.8-10.2); NEUT % 86.5 % (42.8-82.8); PLATELET COUNT 221 10^3/uL (134-434); RDW 15.4 % (11.6-15.6); WHITE BLOOD COUNT 18.5 K/mm3 (4.0-10.0)
[2022-08-13 11:41] LABS: INR 3.95 (0.83-1.09); PROTHROMBIN TIME (PATIENT) 46.1 SEC (9.7-13.0)
[2022-08-13 12:07] LABS: CALCIUM 8.6 mg/dL (8.5-10.1); MAGNESIUM 1.3 mg/dL (1.8-2.4)
[2022-08-13 12:08] LABS: BLOOD UREA NITROGEN 18.5 mg/dL (7-18)
[2022-08-13 12:11] LABS: CREATININE 1.7 mg/dL (0.55-1.3); PHOSPHOROUS 2.4 mg/dL (2.5-4.9)
[2022-08-13] MEDS ORDERED: MAGNESIUM SULF 50% (8.12 MEQ/2 ML-1 GM VIAL) IVPB ONE (15:33)
[2022-08-13] MEDS ORDERED: SODIUM PHOSPHATE - 20 MM in DEXTROSE 5%-WATER - 500 ML IVPB ONE (17:30)
[2022-08-13] MEDS ORDERED: WARFARIN NA 1 MG TABLET PO SCH (18:00)
[2022-08-13] MEDS: ATORVASTATIN CA 10 MG TABLET (FP) PO SCH (22:59)
[2022-08-14] MEDS: VANCOMYCIN 250 MG/5 ML ORAL SOLUTION PO SCH ×4 (00:51→17:58)
[2022-08-14 09:27] LABS: BASO % 0.1 % (0-2.0); EOS % 1.2 % (0-4.5); HEMATOCRIT 30.2 % (32.4-45.2); HEMOGLOBIN 9.9 GM/dL (10.7-15.3); LYMPH % 9.1 % (8-40); MCH 29.3 pg (25.7-33.7); MCHC 32.8 g/dl (32.0-36.0); MEAN CELL VOLUME 89.1 fl (80-96); MEAN PLT VOLUME 7.9 fl (7.5-11.1); NEUT % 84.6 % (42.8-82.8); PLATELET COUNT 227 10^3/uL (134-434); RBC 3.39 M/mm3 (3.60-5.2); RDW 14.8 % (11.6-15.6)
[2022-08-14] MEDS: LISINOPRIL 5 MG TABLET PO SCH (09:38)
[2022-08-14] MEDS: predniSONE 5 MG TABLET (UD) PO SCH (09:38)
[2022-08-14] MEDS: GABAPENTIN 300 MG CAPSULE PO SCH ×2 (09:38→22:16)
[2022-08-14] MEDS: TACROLIMUS ANHYDROUS 1 MG CAPSULE PO SCH ×2 (09:39→22:17)
[2022-08-14] MEDS: HYDROXYCHLOROQUINE SO4 200 MG TABLET (FP) PO SCH ×2 (09:40→22:18)
[2022-08-14 10:01] LABS: BLOOD UREA NITROGEN 12.6 mg/dL (7-18); CALCIUM 8.3 mg/dL (8.5-10.1); MAGNESIUM 2.1 mg/dL (1.8-2.4)
[2022-08-14 10:03] LABS: PHOSPHOROUS 2.8 mg/dL (2.5-4.9)
[2022-08-14 10:04] LABS: CREATININE 1.3 mg/dL (0.55-1.3)
[2022-08-14 10:05] LABS: BILIRUBIN,TOTAL 0.5 mg/dL (0.2-1)
[2022-08-14 10:08] LABS: ALBUMIN 2.5 g/dl (3.4-5.0)
[2022-08-14 12:37] LABS: INR 3.76 (0.83-1.09); PROTHROMBIN TIME (PATIENT) 43.8 SEC (9.7-13.0)
[2022-08-14] MEDS ORDERED: WARFARIN NA 2 MG TABLET PO SCH (18:00)
[2022-08-14] MEDS: ATORVASTATIN CA 10 MG TABLET (FP) PO SCH (22:16)
[2022-08-15] MEDS: VANCOMYCIN 250 MG/5 ML ORAL SOLUTION PO SCH ×3 (06:06→11:56)
[2022-08-15 09:19] LABS: BASO % 0.2 % (0-2.0); EOS % 2.4 % (0-4.5); HEMATOCRIT 31.1 % (32.4-45.2); HEMOGLOBIN 10.3 GM/dL (10.7-15.3); LYMPH % 25.5 % (8-40); MCH 29.3 pg (25.7-33.7); MEAN CELL VOLUME 88.8 fl (80-96); MEAN PLT VOLUME 7.7 fl (7.5-11.1); MONO % 6.5 % (3.8-10.2); NEUT % 65.4 % (42.8-82.8); PLATELET COUNT 264 10^3/uL (134-434); RDW 14.8 % (11.6-15.6); WHITE BLOOD COUNT 8.7 K/mm3 (4.0-10.0)
[2022-08-15 09:27] LABS: INR 3.01 (0.83-1.09)
[2022-08-15] MEDS: predniSONE 5 MG TABLET (UD) PO SCH (09:29)
[2022-08-15] MEDS: GABAPENTIN 300 MG CAPSULE PO SCH (09:29)
[2022-08-15] MEDS: HYDROXYCHLOROQUINE SO4 200 MG TABLET (FP) PO SCH (09:29)
[2022-08-15] MEDS: LISINOPRIL 5 MG TABLET PO SCH (09:30)
[2022-08-15] MEDS: TACROLIMUS ANHYDROUS 1 MG CAPSULE PO SCH (09:30)
[2022-08-15 09:33] VITALS: TEMP 98.1
[2022-08-15 12:06] LABS: CALCIUM 8.5 mg/dL (8.5-10.1)
[2022-08-15 12:07] LABS: ALBUMIN 2.5 g/dl (3.4-5.0); BLOOD UREA NITROGEN 10.8 mg/dL (7-18); MAGNESIUM 1.6 mg/dL (1.8-2.4)
[2022-08-15 12:09] LABS: CREATININE 1.3 mg/dL (0.55-1.3)
[2022-08-15 12:10] LABS: PHOSPHOROUS 3.2 mg/dL (2.5-4.9)
[2022-08-15 12:11] LABS: BILIRUBIN,TOTAL 0.2 mg/dL (0.2-1); TOT PROT 5.9 g/dl (6.4-8.2)
[2022-08-15] MEDS ORDERED: WARFARIN NA 1 MG TABLET PO SCH (18:00)
[2022-08-16 04:58] VITALS: BP 98/55; PULSE 105; RESP 18
== END 2022-08-15 15:22 | disposition home or self-care (01) ==
LOC: JER 22:57 → INTOOBSV 08-12 04:05 → UNDOADMOB 08-12 04:05 → JERBED 08-12 04:05 → J6S 08-13 01:21
PROVIDERS: ADMIT Internal Medicine; ATTEND Internal Medicine
PROC: 3E033NZ Introduction of Analgesics, Hypnotics, Sedatives into Peripheral Vein, Percutaneous Approach (ICD-10-PCS; principal; 2022-08-12)
PROC: 3E03329 Introduction of Other Anti-infective into Peripheral Vein, Percutaneous Approach (ICD-10-PCS; 2022-08-12)
PROC: 3E033GC Introduction of Other Therapeutic Substance into Peripheral Vein, Percutaneous Approach (ICD-10-PCS; 2022-08-12)
PROC: 3E0337Z Introduction of Electrolytic and Water Balance Substance into Peripheral Vein, Percutaneous Approach (ICD-10-PCS; 2022-08-12)
DX: A41.89 Other specified sepsis (principal); A04.72 Enterocolitis due to Clostridium difficile, not specified as recurrent; M32.9 Systemic lupus erythematosus, unspecified; N18.9 Chronic kidney disease, unspecified; Z94.0 Kidney transplant status; E66.8 Other obesity; Z68.37 Body mass index [BMI] 37.0-37.9, adult; Z88.8 Allergy status to other drugs, medicaments and biological substances; M32.14 Glomerular disease in systemic lupus erythematosus; Z86.718 Personal history of other venous thrombosis and embolism; Z79.01 Long term (current) use of anticoagulants; C85.10 Unspecified B-cell lymphoma, unspecified site; N17.9 Acute kidney failure, unspecified
CPT/HCPCS: 0241U-QW; 36415; 71045-TC-FY; 74176-TC; 76775-TC; 80048; 80053; 80197; 81003; 82550; 82553; 82803; 83605; 83735; 84100; 84484; 84703; 85025; 85610; 85730; 86850; 86900; 86901; 87040; 87045; 87046; 87086; 87186; 87324; 87449; 93005; 93010; 96361; 96365; 96375; 99285-25; G0378

== ENCOUNTER 2022-08-27 05:16 | Inpatient (IN) | payer OTHER ==
[2022-08-27] MEDS ORDERED: LACTATED RINGERS SOLUTION 1000 ML INFUS.BAG IV ONE ×2 (06:14→06:18)
[2022-08-27] MEDS ORDERED: HYDROCORTISONE SOD SUCCINATE 100 MG/2 ML VIAL IVPB ONE (06:23)
[2022-08-27] MEDS ORDERED: HYDROCORTISONE SOD SUCCINATE 100 MG/2 ML VIAL ONE (06:29)
[2022-08-27 06:37] LABS: VENOUS BASE EXCESS -1.7 mmol/L (-2-2); VENOUS O2 SATURATION 31.2 % (70-80); VENOUS PCO2 46.4 mmHg (38-52); VENOUS PH 7.336 (7.310-7.410)
[2022-08-27 06:44] LABS: HEMATOCRIT 35.6 % (32.4-45.2); HEMOGLOBIN 11.6 GM/dL (10.7-15.3); MCHC 32.5 g/dl (32.0-36.0); MEAN CELL VOLUME 89.2 fl (80-96); PLATELET COUNT 347 10^3/uL (134-434); RBC 3.99 M/mm3 (3.60-5.2); RDW 15.9 % (11.6-15.6); WHITE BLOOD COUNT 26.2 K/mm3 (4.0-10.0)
[2022-08-27] MEDS ORDERED: ACETAMINOPHEN 1000 MG/100 ML BAG IVPB ONE (06:44)
[2022-08-27] MEDS ORDERED: ACETAMINOPHEN INJECTION 100 ML IVPB ONE (06:50)
[2022-08-27] MEDS ORDERED: VANCOMYCIN 1 GM in D5W (PRE-DOCKED) 1,000 MG/250 ML IVPB ONE (06:56)
[2022-08-27] MEDS ORDERED: CEFEPIME HCL/D5W 2 GM/50 ML BAG IVPB ONE (06:56)
[2022-08-27 07:01] LABS: INR 2.46 (0.83-1.09); PROTHROMBIN TIME (PATIENT) 28.5 SEC (9.7-13.0)
[2022-08-27 07:03] LABS: ACTIVATED PTT 36.2 SECONDS (25.2-36.5)
[2022-08-27 07:13] LABS: CALCIUM 9.3 mg/dL (8.5-10.1)
[2022-08-27 07:14] LABS: BLOOD UREA NITROGEN 23.3 mg/dL (7-18)
[2022-08-27 07:17] LABS: CREATININE 2.4 mg/dL (0.55-1.3)
[2022-08-27 07:18] LABS: BILIRUBIN,TOTAL 1.1 mg/dL (0.2-1); TOT PROT 7.8 g/dl (6.4-8.2)
[2022-08-27] MEDS ORDERED: SODIUM CHLORIDE 0.9% 500 ML INFUS.BAG IV ONE (07:27)
[2022-08-27 07:31] LABS: ALBUMIN 3.5 g/dl (3.4-5.0); LACTIC ACID 2.3 mmol/L (0.4-2.0)
[2022-08-27] MEDS ORDERED: CEFEPIME 2 GM/100 ML BAG IVPB ONE (07:31)
[2022-08-27] MEDS ORDERED: MAGNESIUM SULF 50% (8.12 MEQ/2 ML-1 GM VIAL) IVPB ONE (08:07)
[2022-08-27 08:09] LABS: EPI CELLS >36 /uL (0-25.1); HYALINE CASTS 2 /uL (0-3.1); URINE APPEARANCE CLEAR; URINE BACTERIA 196 /uL (0-1359); URINE BILIRUBIN NEGATIVE (NEGATIVE); URINE COLOR YELLOW; URINE GLUCOSE (UA) NEGATIVE (NEGATIVE); URINE KETONE TRACE (NEGATIVE); URINE LEUK ESTERASE TRACE (NEGATIVE); URINE NITRITE NEGATIVE (NEGATIVE); URINE PROTEIN 1+ (NEGATIVE); URINE RBC 27 /uL (0-23.9); URINE UROBILINOGEN 0.2 mg/dL (0.2-1.0); URINE WBC 60 /uL (0-25.8)
[2022-08-27 08:33] LABS: MAGNESIUM 1.1 mg/dL (1.8-2.4)
[2022-08-27] MEDS ORDERED: VANCOMYCIN/WATER FOR INJ (PEG) 1,000 MG/200 ML BAG IVPB ONE (08:33)
[2022-08-27 08:37] LABS: PHOSPHOROUS 3.2 mg/dL (2.5-4.9)
[2022-08-27] MEDS ORDERED: LACTATED RINGERS SOLUTION 1,000 ML IV SCH (09:15)
[2022-08-27 09:43] LABS: ANISOCYTOSIS 1+; MACROCYTOSIS 0
[2022-08-27] MEDS ORDERED: MAGNESIUM SULFATE IN WATER 2 GM/50 ML IVPB IVPB ONE (10:08)
[2022-08-27] MEDS: HYDROXYCHLOROQUINE SO4 200 MG TABLET (FP) PO SCH ×2 (11:25→22:34)
[2022-08-27] MEDS: TACROLIMUS ANHYDROUS 1 MG CAPSULE PO SCH ×2 (11:25→22:34)
[2022-08-27] MEDS: predniSONE 5 MG TABLET (UD) PO SCH (11:25)
[2022-08-27] MEDS ORDERED: metroNIDAZOLE 500 MG TABLET PO SCH (11:30)
[2022-08-27] MEDS ORDERED: metroNIDAZOLE 250 MG TABLET PO SCH (11:30)
[2022-08-27] MEDS ORDERED: VANCOMYCIN 250 MG/5 ML ORAL SOLUTION PO SCH (12:00)
[2022-08-27] MEDS ORDERED: metroNIDAZOLE 250 MG TABLET ONE (12:10)
[2022-08-27] MEDS: VANCOMYCIN 250 MG/5 ML ORAL SOLUTION PO SCH ×2 (14:18→18:26)
[2022-08-27] MEDS: LACTATED RINGERS SOLUTION 1,000 ML IV SCH (14:19)
[2022-08-27] MEDS: WARFARIN NA 1 MG TABLET PO SCH (18:25)
[2022-08-27] MEDS ORDERED: WARFARIN NA 1 MG TABLET ONE (18:27)
[2022-08-27] MEDS ORDERED: FAMOTIDINE 10 MG TABLET PO ONE (20:39)
[2022-08-27] MEDS ORDERED: FAMOTIDINE 10 MG TABLET ONE (20:42)
[2022-08-27] MEDS ORDERED: WARFARIN NA 3 MG TABLET PO SCH (22:00)
[2022-08-27] MEDS ORDERED: GABAPENTIN 100 MG CAPSULE PO SCH (22:00)
[2022-08-27] MEDS ORDERED: GABAPENTIN 100 MG CAPSULE ONE (22:26)
[2022-08-27] MEDS ORDERED: ATORVASTATIN CA 10 MG TABLET (FP) ONE (22:26)
[2022-08-27] MEDS: LACTOBACILLUS ACIDOPHILUS 1 TABLET PO SCH (22:33)
[2022-08-27] MEDS: ATORVASTATIN CA 10 MG TABLET (FP) PO SCH (22:33)
[2022-08-27] MEDS: GABAPENTIN 100 MG CAPSULE PO SCH (22:34)
[2022-08-28] MEDS: VANCOMYCIN 250 MG/5 ML ORAL SOLUTION PO SCH ×4 (01:00→20:47)
[2022-08-28] MEDS ORDERED: LACTATED RINGERS SOLUTION 1000 ML INFUS.BAG IV ONE (04:27)
[2022-08-28 07:08] LABS: BASO % 0.2 % (0-2.0); EOS % 1.4 % (0-4.5); HEMATOCRIT 26.5 % (32.4-45.2); HEMOGLOBIN 8.7 GM/dL (10.7-15.3); LYMPH % 11.9 % (8-40); MCH 29.5 pg (25.7-33.7); MEAN CELL VOLUME 89.4 fl (80-96); MEAN PLT VOLUME 8.2 fl (7.5-11.1); MONO % 8.2 % (3.8-10.2); NEUT % 78.3 % (42.8-82.8); PLATELET COUNT 217 10^3/uL (134-434); RBC 2.96 M/mm3 (3.60-5.2); RDW 15.7 % (11.6-15.6); WHITE BLOOD COUNT 13.7 K/mm3 (4.0-10.0)
[2022-08-28 07:18] LABS: INR 3.67 (0.83-1.09); PROTHROMBIN TIME (PATIENT) 42.8 SEC (9.7-13.0)
[2022-08-28 07:24] LABS: CALCIUM 8.3 mg/dL (8.5-10.1)
[2022-08-28 07:25] LABS: BLOOD UREA NITROGEN 14.7 mg/dL (7-18); MAGNESIUM 1.3 mg/dL (1.8-2.4)
[2022-08-28 07:28] LABS: BILIRUBIN,TOTAL 0.5 mg/dL (0.2-1); CREATININE 1.3 mg/dL (0.55-1.3); PHOSPHOROUS 2.2 mg/dL (2.5-4.9)
[2022-08-28] MEDS ORDERED: POTASSIUM CHLORIDE TABS 20 MEQ TABLET.ER (FP) PO ONE ×2 (07:31→08:28)
[2022-08-28 08:07] LABS: ALBUMIN 2.4 g/dl (3.4-5.0); TOT PROT 5.7 g/dl (6.4-8.2)
[2022-08-28] MEDS ORDERED: MAGNESIUM OXIDE 400 MG TABLET (FP) ONE ×2 (09:05→23:24)
[2022-08-28] MEDS ORDERED: GABAPENTIN 100 MG CAPSULE ONE ×2 (09:05→23:25)
[2022-08-28] MEDS: predniSONE 5 MG TABLET (UD) PO SCH (09:18)
[2022-08-28] MEDS: GABAPENTIN 100 MG CAPSULE PO SCH ×2 (09:19→23:49)
[2022-08-28] MEDS: MAGNESIUM OXIDE 400 MG TABLET (FP) PO SCH ×2 (09:19→23:49)
[2022-08-28] MEDS: TACROLIMUS ANHYDROUS 1 MG CAPSULE PO SCH ×2 (09:45→23:49)
[2022-08-28] MEDS: HYDROXYCHLOROQUINE SO4 200 MG TABLET (FP) PO SCH ×2 (09:45→23:49)
[2022-08-28] MEDS ORDERED: metroNIDAZOLE 250 MG TABLET ONE (12:17)
[2022-08-28] MEDS: LACTATED RINGERS SOLUTION 1,000 ML IV SCH (12:26)
[2022-08-28] MEDS ORDERED: WARFARIN NA 2 MG TABLET PO SCH (18:00)
[2022-08-28] MEDS ORDERED: WARFARIN NA 1 MG TABLET ONE (18:26)
[2022-08-28] MEDS ORDERED: ATORVASTATIN CA 10 MG TABLET (FP) ONE (23:25)
[2022-08-28] MEDS ORDERED: GABAPENTIN 300 MG CAPSULE ONE (23:25)
[2022-08-28] MEDS: ATORVASTATIN CA 10 MG TABLET (FP) PO SCH (23:49)
[2022-08-28] MEDS: LACTOBACILLUS ACIDOPHILUS 1 TABLET PO SCH (23:49)
[2022-08-28] MEDS: GABAPENTIN 300 MG CAPSULE PO SCH (23:49)
[2022-08-29] MEDS: VANCOMYCIN 250 MG/5 ML ORAL SOLUTION PO SCH ×5 (03:50→23:38)
[2022-08-29] MEDS: TACROLIMUS ANHYDROUS 1 MG CAPSULE PO SCH ×2 (06:49→21:30)
[2022-08-29 08:16] LABS: BASO % 0.5 % (0-2.0); EOS % 2.9 % (0-4.5); HEMATOCRIT 28.1 % (32.4-45.2); HEMOGLOBIN 9.3 GM/dL (10.7-15.3); LYMPH % 24.7 % (8-40); MCH 29.5 pg (25.7-33.7); MCHC 33.1 g/dl (32.0-36.0); MEAN CELL VOLUME 88.9 fl (80-96); MEAN PLT VOLUME 7.7 fl (7.5-11.1); MONO % 8.2 % (3.8-10.2); NEUT % 63.7 % (42.8-82.8); PLATELET COUNT 218 10^3/uL (134-434); RBC 3.16 M/mm3 (3.60-5.2); RDW 15.4 % (11.6-15.6); WHITE BLOOD COUNT 7.2 K/mm3 (4.0-10.0)
[2022-08-29 08:28] LABS: ALBUMIN 2.7 g/dl (3.4-5.0); BLOOD UREA NITROGEN 11.3 mg/dL (7-18); CALCIUM 8.4 mg/dL (8.5-10.1); MAGNESIUM 1.4 mg/dL (1.8-2.4)
[2022-08-29 08:31] LABS: CREATININE 1.1 mg/dL (0.55-1.3)
[2022-08-29 08:32] LABS: INR 3.19 (0.83-1.09); PROTHROMBIN TIME (PATIENT) 37.1 SEC (9.7-13.0)
[2022-08-29 08:33] LABS: BILIRUBIN,TOTAL 0.4 mg/dL (0.2-1); TOT PROT 5.9 g/dl (6.4-8.2)
[2022-08-29] MEDS: FAMOTIDINE 20 MG TABLET PO SCH (10:13)
[2022-08-29] MEDS: GABAPENTIN 100 MG CAPSULE PO SCH ×2 (10:13→21:28)
[2022-08-29] MEDS: predniSONE 5 MG TABLET (UD) PO SCH (10:14)
[2022-08-29] MEDS: HYDROXYCHLOROQUINE SO4 200 MG TABLET (FP) PO SCH ×2 (10:15→21:29)
[2022-08-29 16:17] LABS: INR 2.81 (0.83-1.09); PROTHROMBIN TIME (PATIENT) 32.6 SEC (9.7-13.0)
[2022-08-29] MEDS: LACTATED RINGERS SOLUTION 1,000 ML IV SCH (17:09)
[2022-08-29] MEDS ORDERED: WARFARIN NA 3 MG TABLET PO SCH (18:00)
[2022-08-29] MEDS: LACTOBACILLUS ACIDOPHILUS 1 TABLET PO SCH (21:28)
[2022-08-29] MEDS: ATORVASTATIN CA 10 MG TABLET (FP) PO SCH (21:28)
[2022-08-29] MEDS: GABAPENTIN 300 MG CAPSULE PO SCH (21:28)
[2022-08-29 23:51] VITALS: BMI 37.6
[2022-08-30] MEDS: VANCOMYCIN 250 MG/5 ML ORAL SOLUTION PO SCH ×3 (06:27→17:07)
[2022-08-30] MEDS: TACROLIMUS ANHYDROUS 1 MG CAPSULE PO SCH (06:27)
[2022-08-30 08:34] LABS: BASO % 0.4 % (0-2.0); EOS % 2.6 % (0-4.5); HEMOGLOBIN 8.9 GM/dL (10.7-15.3); LYMPH % 37.3 % (8-40); MCH 29.3 pg (25.7-33.7); MEAN CELL VOLUME 88.6 fl (80-96); MEAN PLT VOLUME 8.1 fl (7.5-11.1); MONO % 10.2 % (3.8-10.2); NEUT % 49.5 % (42.8-82.8); PLATELET COUNT 242 10^3/uL (134-434); RBC 3.05 M/mm3 (3.60-5.2); RDW 15.4 % (11.6-15.6); WHITE BLOOD COUNT 5.8 K/mm3 (4.0-10.0)
[2022-08-30 08:53] LABS: ALBUMIN 2.5 g/dl (3.4-5.0); BLOOD UREA NITROGEN 8.3 mg/dL (7-18); CALCIUM 8.2 mg/dL (8.5-10.1); MAGNESIUM 1.1 mg/dL (1.8-2.4)
[2022-08-30 08:55] LABS: CREATININE 1.1 mg/dL (0.55-1.3)
[2022-08-30 08:56] LABS: BILIRUBIN,TOTAL 0.2 mg/dL (0.2-1); TOT PROT 5.7 g/dl (6.4-8.2)
[2022-08-30] MEDS: predniSONE 5 MG TABLET (UD) PO SCH (09:44)
[2022-08-30] MEDS: FAMOTIDINE 20 MG TABLET PO SCH (09:44)
[2022-08-30] MEDS: GABAPENTIN 100 MG CAPSULE PO SCH (09:44)
[2022-08-30] MEDS: HYDROXYCHLOROQUINE SO4 200 MG TABLET (FP) PO SCH (09:45)
[2022-08-30 10:08] VITALS: RESP 18
[2022-08-30] MEDS ORDERED: FAMOTIDINE 10 MG TABLET PO PRN (11:27)
[2022-08-30] MEDS: LACTATED RINGERS SOLUTION 1,000 ML IV SCH (11:34)
[2022-08-30] MEDS ORDERED: LACTATED RINGERS SOLUTION 1,000 ML IV SCH (12:02)
[2022-08-30 15:26] VITALS: BP 104/65; PULSE 92; TEMP 98.2
[2022-08-30] MEDS ORDERED: MAGNESIUM SULF 50% (8.12 MEQ/2 ML-1 GM VIAL) IVPB ONE (15:27)
[2022-08-30 16:32] LABS: INR 3.18 (0.83-1.09)
[2022-08-30] MEDS: WARFARIN NA 1 MG TABLET PO SCH (17:07)
== END 2022-08-30 18:37 | disposition home or self-care (01) | DRG 720 ==
LOC: JER 05:16 → JERBED 07:40 → J4W 08-29 05:34
PROVIDERS: ADMIT Internal Medicine; ATTEND Internal Medicine
DX: A41.9 Sepsis, unspecified organism (principal); N17.9 Acute kidney failure, unspecified; A04.72 Enterocolitis due to Clostridium difficile, not specified as recurrent; C85.10 Unspecified B-cell lymphoma, unspecified site; D68.61 Antiphospholipid syndrome; M32.9 Systemic lupus erythematosus, unspecified; Z94.0 Kidney transplant status; D72.829 Elevated white blood cell count, unspecified; E66.9 Obesity, unspecified; Z68.37 Body mass index [BMI] 37.0-37.9, adult; N18.9 Chronic kidney disease, unspecified
CPT/HCPCS: 0241U-QW; 36415; 71045-TC-FY; 74176-TC; 80053; 80197; 81003; 82436; 82550; 82553; 82570; 82803; 82962; 83605; 83735; 83935; 84100; 84133; 84300; 84484; 85025; 85610; 85730; 86140; 86850; 86900; 86901; 87040; 87045; 87046; 87086; 87205; 87324; 87449; 87493; 93005; 93010; 94010; 99285-25